=== PATIENT | male | born 1955 | race Caucasian/White ===

== ENCOUNTER 2017-09-09 11:18 | Observation (INO) | payer MEDICARE, OTHER ==
[2017-09-09] MEDS ORDERED: Sodium Chloride 0.9% 1,000 ML IV ONE (11:42)
[2017-09-09] MEDS ORDERED: Sodium Chloride 0.9% 10 ML Syringe FLUSH PRN ×2 (11:43→12:59)
[2017-09-09] MEDS ORDERED: cefTRIAXone 1,000 MG in Sodium Chloride 0.9% 50 ML IV ONE (12:32)
[2017-09-09] MEDS ORDERED: Acetaminophen 325 MG Tab PO STA (12:35)
--- NOTE | 2017-09-09 12:37 | EDM.PDOC ---
ED HPI GENERAL MEDICAL PROBLEM - General Chief Complaint: Fever Stated Complaint: COUGH,CHILLS Time Seen by Provider: 09/09/17 11:42 Source of Information: Reports: Patient, Family () History Limitations: Reports: No Limitations - History of Present Illness INITIAL COMMENTS - FREE TEXT/NARRATIVE: 61 y.o.w.m came to the ed with his SO due to Fever, prod cough and SOB. Pt has a h/o Alport syndrome, was on dialysis and has now a donor kidney implanted, taking insuppressible medications. 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 Pt had pneumonia in the past. Pt's called the [facility] advising the patient to be seen here in our ED. Pt took Tylenol at 4 am today. 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: Acetaminophen headache Pain Score (Numeric/FACES): 5 - Related Data Allergies Allergy/AdvReac Type Severity Reaction Status Date / Time amlodipine besylate Allergy Unknown Swelling Verified 09/09/17 14:07 [From Norvasc] minoxidil Allergy Unknown Swelling Verified 09/09/17 14:07 alcohol Allergy Rash Verified 09/09/17 14:07 clonidine Allergy Difficulty Verified 09/09/17 14:07 Breathing levofloxacin [From Levaquin] Allergy Cannot Verified 09/09/17 14:07 Remember Home Meds: Home Meds Acetaminophen [Tylenol Extra Strength] 1,000 mg PO Q4H PRN 08/02/13 [History] Mycophenolate Mofetil [Cellcept] 250 mg PO BIDMEALS 08/02/13 [History] Omeprazole 40 mg PO BEDTIME 08/02/13 [History] Tacrolimus [Prograf] 2 mg PO BID 08/02/13 [History] Acetaminophen/Diphenhydramine [Tylenol Pm Ex-Strength Caplet] 1 ea PO BEDTIME PRN 12/03/15 [History] Amoxicillin/Potassium Clav [Amox-Clav 500-125 mg Tablet] 1 ea PO ASDIRECTED PRN 12/03/15 [History] Fluorouracil [Efudex 5% Cream] 1 applic TOP BID 12/03/15 [History] predniSONE [Prednisone] 10 mg PO DAILY 12/03/15 [History] Carvedilol [Coreg] 12.5 mg PO BID 09/09/17 [History] Furosemide [Lasix] 40 mg PO DAILY PRN 09/09/17 [History] Magnesium Chloride [Slow-Mag] 71.5 mg PO BID 09/09/17 [History] Multivitamin with Minerals [Multiple Vitamin] 1 tab PO DAILY 09/09/17 [History] Phosphorus #1 [Phospha 250 Neutral Tablet] 250 mg PO DAILY 09/09/17 [History] Phosphorus #1 [Phospha 250 Neutral Tablet] 250 mg PO DAILY 09/09/17 [History] atorvaSTATin [Lipitor] 10 mg PO BEDTIME 09/09/17 [History] Past Medical History HEENT History: Reports: Hard of Hearing, Other (See Below) Other HEENT History: ACTINIC DERATOSIS, MALIGNANT NEOPLASM OF EYELID, INCLUDING CANTHUS Cardiovascular History: Reports: High Cholesterol, Hypertension Respiratory History: Reports: SOB Gastrointestinal History: Reports: Other (See Below) Other Gastrointestinal History: HYDROCELE Genitourinary History: Reports: Dialysis, Dialysis, Peritoneal, Prostate Disorder, Renal Disease Neurological History: Reports: None Psychiatric History: Reports: None Endocrine/Metabolic History: Reports: Hyperparathyroidism Other Endocrine/Metabolic History: PARATHYROIDECTOMY R/T 2NDARY FROM RENAL DISEASE Hematologic History: Reports: Anemia, Blood Transfusion(s) Other Hematologic History: ANEMIA R/T KIDNEY DISEASE Immunologic History: Reports: None Oncologic (Cancer) History: Reports: Prostate, Squamous Cell Carcinoma Dermatologic History: Reports: Other (See Below) Other Dermatologic History: NEOPLASMS OF SKIN - Infectious Disease History Infectious Disease History: Reports: Chicken Pox, Measles, Mumps, Rubella, Shingles - Past Surgical History HEENT Surgical History: Reports: Oral Surgery Cardiovascular Surgical History: Reports: Vascular Surgery Male Surgical History: Reports: Other (See Below) Other Male Surgeries/Procedures: kidney transplant x 3 Endocrine Surgical History: Reports: Parathyroidectomy Neurological Surgical History: Reports: None Musculoskeletal Surgical History: Reports: Hip Replacement, Other (See Below) Social & Family History - Family History Family Medical History: Noncontributory - Tobacco Use Smoking Status *Q: Never Smoker Used Tobacco, but Quit: Yes Second Hand Smoke Exposure: No - Caffeine Use Caffeine Use: Reports: Coffee - Alcohol Use Days Per Week of Alcohol Use: 0 - Recreational Drug Use Recreational Drug Use: No ED ROS GENERAL - Review of Systems Review Of Systems: See Below Constitutional: Reports: Weakness HEENT: Reports: No Symptoms Respiratory: Reports: Shortness of Breath, Wheezing, Cough, Sputum Cardiovascular: Reports: No Symptoms Endocrine: Reports: No Symptoms GI/Abdominal: Reports: No Symptoms : Reports: No Symptoms Musculoskeletal: Reports: No Symptoms Skin: Reports: No Symptoms Neurological: Reports: No Symptoms Psychiatric: Reports: No Symptoms Hematologic/Lymphatic: Reports: No Symptoms Immunologic: Reports: No Symptoms ED EXAM, SEPSIS - Physical Exam Exam: See Below Exam Limited By: No Limitations General Appearance: Alert, WD/WN, Moderate Distress Eye Exam: Bilateral Eye: Normal Inspection Ears: Normal External Exam Nose: Normal Inspection Throat/Mouth: Normal Inspection, Normal Lips, Normal Gums, No Airway Compromise Head: Atraumatic, Normocephalic Neck: Normal Inspection, Supple, Non-Tender, Full Range of Motion Respiratory/Chest: Respiratory Distress, Decreased Breath Sounds, Wheezing Cardiovascular: Normal Peripheral Pulses, Regular Rate, Rhythm, No Edema, No Gallop, No JVD, No Murmur, No Rub Peripheral Pulses: 1+: Brachial (R) GI/Abdominal Exam: Normal Bowel Sounds, Soft, Non-Tender, No Organomegaly, No Mass, Pelvis Stable (Male) Exam: No Hernia Rectal (Males) Exam: Deferred Back: Normal Inspection, Full Range of Motion Extremities: Normal Inspection, Normal Range of Motion, Non-Tender, No Pedal Edema, Normal Capillary Refill Neurological: Alert, Oriented, CN II-XII Intact, Normal Cognition, Normal Gait, Normal Reflexes, No Motor/Sensory Deficits Psychiatric: Normal Affect, Normal Mood Skin: Warm, Dry, Intact, Normal Color, No Rash Lymphatic: Bilateral: No Adenopathy Course - Vital Signs Text/Narrative:: 61 y.o.w.m came to the ed with his SO due to Fever, prod cough and SOB. Pt has a h/o Alport syndrome, was on dialysis and has now a donor kidney implanted, taking insuppressible medications. 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 Pt had pneumonia in the past. Pt's called the [facility] advising the patient to be seen here in our ED. Pt took Tylenol at 4 am today. BP 124/91 RR 18 Pulse ox 93% on RA Pulse 98 temp 36.8 on arrival PE: WNWD W M with Alports syndrome, S/P kidney trans plant presents with prod cough, F/C Labs: WBC 3.4 HGB 15.4 HCT 49.4 reminer of saeed CBC was nl INR 1.09 BUN 27 Cr. 1.7 GFR 41 CRP 2.4 Lactic acid 0.5 Imaging: Infiltrate RLL of lung Impression: Low WBC, Immunesuppressive, Squamous cell CA left eye lid, S/O Kidney transplant. Lung infiltrate. Tx: Tylenol, Rocephine, NS, Duoneb Reexam: Improved 1.01 pm Consultation: Dr. Galindo: Accepted the pt for admission Plan: Admit for ops in isolation Last Recorded V/S: Last Vital Signs Temp 36.7 C 09/09/17 20:00 Pulse 81 09/09/17 20:17 Resp 18 09/09/17 20:00 BP 126/88 09/09/17 20:17 Pulse Ox 96 09/09/17 20:00 - Orders/Labs/Meds Orders: Active Orders 24 hr Category Date Time Status CXR [Chest 2V] [CR] Stat Exams 09/09/17 11:40 Taken CULTURE BLOOD [BC] Urgent Lab 09/09/17 11:55 Received CULTURE BLOOD [BC] Urgent Lab 09/09/17 12:00 Received UA W/MICROSCOPIC [URIN] Stat Lab 09/09/17 12:39 Ordered Sodium Chloride 0.9% [Saline Flush] Med 09/09/17 11:43 Active 10 ml FLUSH ASDIRECTED PRN Blood Culture x2 Reflex Set [OM.PC] Urgent Oth 09/09/17 11:48 Ordered Saline Lock Insert [OM.PC] Routine Oth 09/09/17 11:43 Ordered Medication Orders Acetaminophen (Tylenol) 650 mg PO Q4H PRN PRN Reason: Pain (Mild 1-3)/fever Last Admin: 09/09/17 20:21 Dose: 650 mg Admin: 09/09/17 15:31 Dose: 650 mg Atorvastatin Calcium (Lipitor) 10 mg PO MoWeFr@2100 [facility] Carvedilol (Coreg) 15.625 mg PO BID [facility] Last Admin: 09/09/17 20:17 Dose: 15.625 mg Furosemide (Lasix) 40 mg PO DAILY PRN PRN Reason: Edema Sodium Chloride (Normal Saline) 1,000 mls @ 125 mls/hr IV ASDIRECTED [facility] Last Admin: 09/09/17 13:44 Dose: 125 mls/hr Azithromycin 500 mg/ Sodium (Chloride) 250 mls @ 250 mls/hr IV Q24H [facility] Last Admin: 09/09/17 15:16 Dose: 250 mls/hr Mycophenolate Mofetil (Cellcept) 250 mg PO BIDMEALS [facility] Last Admin: 09/09/17 19:42 Dose: 250 mg Magnesium Chloride [ Slow-Mag] 71.5 Mg Own Med 71.5 mg PO BID [facility] Last Admin: 09/09/17 20:17 Dose: 71.5 mg Multivitamin With Minerals [Multiple Vitamin] 1 TabOwn Med 1 tab PO DAILY [facility] Phospha 250 Neutral Tablet] 250 MgOwn Med 250 mg PO BID [facility] Last Admin: 09/09/17 20:17 Dose: 250 mg Pantoprazole Sodium (Protonix) 40 mg PO DAILY [facility] Prednisone (Prednisone) 10 mg PO DAILY [facility] Sodium Chloride (Saline Flush) 10 ml FLUSH ASDIRECTED PRN PRN Reason: Keep Vein Open Last Admin: 09/09/17 11:57 Dose: 10 ml Sodium Chloride (Saline Flush) 10 ml FLUSH ASDIRECTED PRN PRN Reason: Keep Vein Open Tacrolimus (Prograf) 2 mg PO BID [facility] Last Admin: 09/09/17 20:17 Dose: 2 mg Zolpidem Tartrate (Ambien) 5 mg PO BEDTIME PRN PRN Reason: Sleep Labs: Laboratory Tests 09/09/17 09/09/17 09/09/17 Range/Units 11:55 11:55 11:55 WBC 3.4 L (4.5-12.0) X10-3/uL RBC 5.62 (4.30-5.75) x10(6)uL Hgb 15.6 H D (11.5-15.5) g/dL Hct 49.8 D (30.0-51.3) % MCV 88.7 (80-96) fL MCH 27.8 (27.7-33.6) pg MCHC 31.4 L (32.2-35.4) g/dL RDW 17.1 H (11.5-15.5) % Plt Count 83 L (125-369) X10(3)uL MPV 8.8 (7.4-10.4) fL Neut % (Auto) 57.0 (46-82) % Lymph % (Auto) 31.4 (13-37) % Carter % (Auto) 9.7 (4-12) % Eos % (Auto) 1 (1.0-5.0) % Baso % (Auto) 1 (0-2) % Neut # (Auto) 2.0 (1.6-8.3) # Lymph # (Auto) 1.1 (0.6-5.0) # Carter # (Auto) 0.3 (0.0-1.3) # Eos # (Auto) 0.0 (0.0-0.8) # Baso # (Auto) 0.0 (0.0-0.2) # PT 11.0 (8.7-11.1) INR 1.09 (0.89-1.13) Sodium 136 (135-145) mmol/L Potassium 4.1 (3.5-5.3) mmol/L Chloride 101 (100-110) mmol/L Carbon Dioxide 26 (21-32) mmol/L BUN 21 H (7-18) mg/dL Creatinine 1.7 H (0.70-1.30) mg/dL Est Cr Clr Drug Dosing 55.92 mL/min Estimated GFR (MDRD) 41 L (>60) BUN/Creatinine Ratio 12.4 (9-20) Glucose 121 H (80-116) mg/dL Lactic Acid (0.4-2.2) mmol/L Calcium 8.9 (8.6-10.2) mg/dL C-Reactive Protein (0.5-0.9) mg/dL Urine Color (YELLOW) Urine Appearance (CLEAR) Urine pH (5.0-6.5) Ur Specific [place] (1.010-1.025) Urine Protein (NEGATIVE) mg/dL Urine Glucose (UA) (NEGATIVE) mg/dL Urine Ketones (NEGATIVE) mg/dL Urine Occult Blood (NEGATIVE) Urine Nitrite (NEGATIVE) Urine Bilirubin (NEGATIVE) Urine Urobilinogen (NEGATIVE) mg/dL Ur Leukocyte Esterase (NEGATIVE) Urine WBC (0) Ur Squamous Epith Cells (NS,R,O) Urine Bacteria (NS) 09/09/17 09/09/17 09/09/17 Range/Units 11:55 11:55 12:39 WBC (4.5-12.0) X10-3/uL RBC (4.30-5.75) x10(6)uL Hgb (11.5-15.5) g/dL Hct (30.0-51.3) % MCV (80-96) fL MCH (27.7-33.6) pg MCHC (32.2-35.4) g/dL RDW (11.5-15.5) % Plt Count (125-369) X10(3)uL MPV (7.4-10.4) fL Neut % (Auto) (46-82) % Lymph % (Auto) (13-37) % Carter % (Auto) (4-12) % Eos % (Auto) (1.0-5.0) % Baso % (Auto) (0-2) % Neut # (Auto) (1.6-8.3) # Lymph # (Auto) (0.6-5.0) # Carter # (Auto) (0.0-1.3) # Eos # (Auto) (0.0-0.8) # Baso # (Auto) (0.0-0.2) # PT (8.7-11.1) INR (0.89-1.13) Sodium (135-145) mmol/L Potassium (3.5-5.3) mmol/L Chloride (100-110) mmol/L Carbon Dioxide (21-32) mmol/L BUN (7-18) mg/dL Creatinine (0.70-1.30) mg/dL Est Cr Clr Drug Dosing mL/min Estimated GFR (MDRD) (>60) BUN/Creatinine Ratio (9-20) Glucose (80-116) mg/dL Lactic Acid 0.5 (0.4-2.2) mmol/L Calcium (8.6-10.2) mg/dL C-Reactive Protein 2.3 H (0.5-0.9) mg/dL Urine Color Yellow (YELLOW) Urine Appearance Clear (CLEAR) Urine pH 6.0 (5.0-6.5) Ur Specific [place] 1.010 (1.010-1.025) Urine Protein Negative (NEGATIVE) mg/dL Urine Glucose (UA) Normal (NEGATIVE) mg/dL Urine Ketones Negative (NEGATIVE) mg/dL Urine Occult Blood Negative (NEGATIVE) Urine Nitrite Negative (NEGATIVE) Urine Bilirubin Negative (NEGATIVE) Urine Urobilinogen Normal (NEGATIVE) mg/dL Ur Leukocyte Esterase Negative (NEGATIVE) Urine WBC 0-5 (0) Ur Squamous Epith Cells Occasional (NS,R,O) Urine Bacteria Few H (NS) Meds: Medications Generic Name Dose Route Start Last Admin Trade Name Freq PRN Reason Stop Dose Admin Acetaminophen 650 mg 09/09/17 13:55 09/09/17 20:21 Tylenol PO 650 mg Q4H PRN Administration Pain (Mild 1-3)/fever Atorvastatin Calcium 10 mg 09/10/17 21:00 Lipitor PO MoWeFr@2100 [facility] Carvedilol 15.625 mg 09/09/17 21:00 09/09/17 20:17 Coreg PO 15.625 mg BID RICKIE Administration Furosemide 40 mg 09/09/17 14:08 Lasix PO DAILY PRN Edema Sodium Chloride 1,000 mls @ 125 mls/hr 09/09/17 13:00 09/09/17 13:44 Normal Saline IV 125 mls/hr ASDIRECTED RICKIE Administration Azithromycin 500 mg/ Sodium 250 mls @ 250 mls/hr 09/09/17 14:30 09/09/17 15: 16 Chloride IV 250 mls/hr Q24H RICKIE Administration Mycophenolate Mofetil 250 mg 09/09/17 18:00 09/09/17 19:42 Cellcept PO 250 mg BIDMEALS RICKIE Administration Magnesium Chloride [ 71.5 mg 09/09/17 21:00 09/09/17 20:17 Slow-Mag] 71.5 Mg PO 71.5 mg Own Med BID RICKIE Administration Multivitamin With 1 tab 09/10/17 09:00 Minerals [Multiple PO Vitamin] 1 TabOwn DAILY RICKIE Med Phospha 250 Neutral 250 mg 09/09/17 21:00 09/09/17 20:17 Tablet] 250 MgOwn PO 250 mg Med BID RICKIE Administration Pantoprazole Sodium 40 mg 09/10/17 09:00 Protonix PO DAILY RICKIE Prednisone 10 mg 09/10/17 09:00 Prednisone PO DAILY [facility] Sodium Chloride 10 ml 09/09/17 11:43 09/09/17 11:57 Saline Flush FLUSH 10 ml ASDIRECTED PRN Administration Keep Vein Open Sodium Chloride 10 ml 09/09/17 12:59 Saline Flush FLUSH ASDIRECTED PRN Keep Vein Open Tacrolimus 2 mg 09/09/17 21:00 09/09/17 20:17 Prograf PO 2 mg BID RICKIE Administration Zolpidem Tartrate 5 mg 09/09/17 13:55 Ambien PO BEDTIME PRN Sleep Discontinued Medications Generic Name Dose Route Start Last Admin Trade Name Freq PRN Reason Stop Dose Admin Acetaminophen 650 mg 09/09/17 12:35 09/09/17 12:48 Tylenol PO 09/09/17 12:36 650 mg NOW STA Administration Atorvastatin Calcium 10 mg 09/09/17 21:00 Lipitor PO BEDTIME RICKIE Carvedilol 12.5 mg 09/09/17 21:00 Coreg PO BID [facility] Ceftriaxone Sodium Confirm 09/09/17 12:42 09/09/17 12:48 Rocephin Administered 09/09/17 12:43 Not Given Dose 1,000 mg .ROUTE .STK-MED ONE Ceftriaxone Sodium Confirm 09/09/17 12:44 09/09/17 12:48 Rocephin Administered 09/09/17 12:45 Not Given Dose 1,000 mg .ROUTE .STK-MED ONE Heparin Sodium (Porcine) Confirm 09/09/17 12:46 09/09/17 12:53 Heparin Sodium Administered 09/09/17 12:47 Not Given Dose 5,000 units .ROUTE .STK-MED ONE Sodium Chloride 1,000 mls @ 999 mls/hr 09/09/17 11:42 09/09/17 11:57 Normal Saline IV 09/09/17 12:42 999 mls/hr .BOLUS ONE Administration Ceftriaxone Sodium 1,000 mg/ 50 mls @ 100 mls/hr 09/09/17 12:32 09/09/17 12: 49 Sodium Chloride IV 09/09/17 13:01 100 mls/hr ONETIME ONE Administration Non-Formulary Medication 1 applic 09/09/17 21:00 Fluorouracil [Efudex 5% Cream] TOP BID [facility] Non-Formulary Medication 250 mg 09/10/17 09:00 Phosphorus #1 [Phospha 250 Neutral Tablet] PO DAILY [facility] Non-Formulary Medication 250 mg 09/10/17 09:00 Phosphorus #1 [Phospha 250 Neutral Tablet] PO DAILY [facility] Prednisone 5 mg 09/10/17 09:00 Prednisone PO DAILY [facility] Departure - Departure Time of Disposition: 13:20 Disposition: Refer to Observation Condition: Fair Clinical Impression: Pneumonia Qualifiers: Laterality: right Lung location: lower lobe of lung - Discharge Information - My Orders Last 24 Hours: My Active Orders 09/09/17 11:40 CXR [Chest 2V] [CR] Stat 09/09/17 11:43 Sodium Chloride 0.9% [Saline Flush] 10 ml FLUSH ASDIRECTED PRN Saline Lock Insert [OM.PC] Routine 09/09/17 11:48 Blood Culture x2 Reflex Set [OM.PC] Urgent 09/09/17 11:55 CULTURE BLOOD [BC] Urgent 09/09/17 12:00 CULTURE BLOOD [BC] Urgent 09/09/17 12:39 UA W/MICROSCOPIC [URIN] Stat - Assessment/Plan Last 24 Hours: My Active Orders 09/09/17 11:40 CXR [Chest 2V] [CR] Stat 09/09/17 11:43 Sodium Chloride 0.9% [Saline Flush] 10 ml FLUSH ASDIRECTED PRN Saline Lock Insert [OM.PC] Routine 09/09/17 11:48 Blood Culture x2 Reflex Set [OM.PC] Urgent 09/09/17 11:55 CULTURE BLOOD [BC] Urgent 09/09/17 12:00 CULTURE BLOOD [BC] Urgent 09/09/17 12:39 UA W/MICROSCOPIC [URIN] Stat
[2017-09-09] MEDS ORDERED: cefTRIAXone 1,000 MG VIAL ONE (12:42)
[2017-09-09] MEDS ORDERED: cefTRIAXone 500 MG Vial ONE (12:44)
[2017-09-09] MEDS ORDERED: Heparin Sodium 5,000 Units/ML Vial ONE (12:46)
[2017-09-09] MEDS: Sodium Chloride 0.9% 1,000 ML IV SCH (13:44)
[2017-09-09] MEDS ORDERED: Zolpidem 5 MG Tab PO PRN (13:55)
--- NOTE | 2017-09-09 14:15 | PCM.HP ---
H&P History of Present Illness - General Date of Service: 09/09/17 Admit Problem/Dx: Admission Diagnosis/Problem Admission Diagnosis/Problem Pneumonia - History of Present Illness Initial Comments - Free Text/Narative: Patient 61-year-old gentleman presenting to the ER with acute febrile illness in the setting of immunocompromise due to iatrogenic suppression after renal transplant. States last 2 days he has been feeling more congested with a slight cough along with poor appetite. No real increase shortness of breath however increased fatigability with activity. Was not having any chest pain or pressure no palpitations no neck pain jaw pain extremity numbness or tingling jaundice change in bowel or bladder habits. He did notice urine output has been less but he's also been drinking and eating less as well too. We'll contact he is aware of. No recent change in medication and no real [id number] medications that he is tried. He has had intermittent sweats and chills. He is up-to-date on his immunizations. headache Pain Score (Numeric/FACES): 5 - Related Data Allergies/Adverse Reactions: Allergies Allergy/AdvReac Type Severity Reaction Status Date / Time amlodipine besylate Allergy Unknown Swelling Verified 09/09/17 14:07 [From Norvasc] minoxidil Allergy Unknown Swelling Verified 09/09/17 14:07 alcohol Allergy Rash Verified 09/09/17 14:07 clonidine Allergy Difficulty Verified 09/09/17 14:07 Breathing levofloxacin [From Levaquin] Allergy Cannot Verified 09/09/17 14:07 Remember Home Medications: Home Meds Acetaminophen [Tylenol Extra Strength] 1,000 mg PO Q4H PRN 08/02/13 [History] Acetaminophen/Diphenhydramine [Tylenol Pm Ex-Strength Caplet] 1 ea PO BEDTIME PRN 12/03/15 [History] Amoxicillin/Potassium Clav [Amox-Clav 500-125 mg Tablet] 1 ea PO ASDIRECTED PRN 12/03/15 [History] Fluorouracil [Efudex 5% Cream] 1 applic TOP BID 12/03/15 [History] Multivitamin with Minerals [Multiple Vitamin] 1 tab PO DAILY 09/09/17 [History] Furosemide [Lasix] 40 mg PO Q2D 09/10/17 [History] Amoxicillin/Potassium Clav [Augmentin 500-125 Tablet] 1 each PO Q8H 5 Days #15 tablet 09/11/17 [Rx] Azithromycin [Zithromax] 250 mg PO DAILY #4 tab 09/11/17 [Rx] Carvedilol [Coreg] 3.125 mg PO 0800,1944 tablet 09/11/17 [Rx] Carvedilol [Coreg] 12.5 mg PO 0800,1944 tablet 09/11/17 [Rx] Fluticasone Propionate [Flonase] 1 spr NASBOTH BID 5 Days #1 bottle 09/11/17 [Rx ] Furosemide [Lasix] 40 mg PO Q2D #60 tablet 09/11/17 [Rx] Magnesium Chloride [Slow-Mag] 71.5 mg PO 0800,194409/11/17 [Rx] Mycophenolate Mofetil [Cellcept] 250 mg PO 0800,1944 cap 09/11/17 [Rx] Pantoprazole Sodium 40 mg PO 1744 #60 tablet. 09/11/17 [Rx] Pantoprazole [ProTONIX] 40 mg PO 1944 #60 tab.cr 09/11/17 [Rx] Phosphorus #1 [Phospha 250 Neutral Tablet] 250 mg PO 0800,194409/11/17 [Rx] Tacrolimus [Prograf] 2 mg PO 0800,1944 cap 09/11/17 [Rx] atorvaSTATin [Lipitor] 10 mg PO MoWeFr@2100 #60 tablet 09/11/17 [Rx] predniSONE 10 mg PO DAILY tablet 09/11/17 [Rx] Past Medical History HEENT History: Reports: Impaired Vision (bILATERAL HEARTNG DEVICES WORN), Other (See Below) Other HEENT History: ACTINIC DERMATOSIS, MALIGNANT NEOPLASM OF EYELID, INCLUDING CANTHUS Cardiovascular History: Reports: Cardiomyopathy, Heart Failure, Hypertension, Other (See Below) (RIGHT). Denies: Afib, Aneurysm, Angina, Arrhythmia, Bacterial Endocarditis, Blood Clots/VTE/DVT, Heart Murmur, Heart Valve Replacement, ME, Pacemaker, PVD, Stents Other Cardiovascular History: RUE AV FISTUAL ALONG THE FOREARM, HEALTHY AND FUNCTIONAL. HX OF DIALYSIS 2 YEARS PRIOR TO TRANSPLANTS. Respiratory History: Reports: Interstitial Lung Disease, Pulmonary Fibrosis, SOB Gastrointestinal History: Reports: GERD, Other (See Below) Other Gastrointestinal History: HYDROCELE Genitourinary History: Reports: Dialysis, Dialysis, Peritoneal, Prostate Disorder, Renal Disease, Other (See Below) Other Genitourinary History: home hemodialysis Neurological History: Reports: None Psychiatric History: Reports: None Endocrine/Metabolic History: Reports: Hyperparathyroidism Other Endocrine/Metabolic History: PARATHYROIDECTOMY R/T 2NDARY FROM RENAL DISEASE Hematologic History: Reports: Anemia, Blood Transfusion(s) Other Hematologic History: ANEMIA R/T KIDNEY DISEASE Immunologic History: Reports: None, Immunosuppression, 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 ROSACIA, SEBACCIOUS CYSTS INTERMETTENTLY TO THE BACK. - Infectious Disease History Infectious Disease History: Reports: Chicken Pox, Measles, Mumps, Rubella, Shingles - Past Surgical History HEENT Surgical History: Reports: Oral Surgery Other HEENT Surgeries/Procedures: PARATHYROIDECTOMY Cardiovascular Surgical History: Reports: Vascular Surgery (RIGHT UE FISTULA FOR DIALYSIS IF NEEDED.) Respiratory Surgical History: Reports: None GI Surgical History: Reports: Colonoscopy Male Surgical History: Reports: Prostate Biopsy, Prostatectomy, Vasectomy, Other (See Below) (RIGHT KIDNEY REPLACE X 3) Endocrine Surgical History: Reports: Parathyroidectomy Neurological Surgical History: Reports: None Musculoskeletal Surgical History: Reports: Hip Replacement, Other (See Below) - Past Imaging History Past Imaging History: Reports: Angiography, Cardiac Echo, EEG, MRI, Venous Doppler, Xray Social & Family History - Family History Family Medical History: Noncontributory - Tobacco Use Smoking Status *Q: Never Smoker Used Tobacco, but Quit: Yes Second Hand Smoke Exposure: No - Caffeine Use Caffeine Use: Reports: Coffee Other Caffeine Use: 1-2 cups per day - Alcohol Use Days Per Week of Alcohol Use: 0 - Recreational Drug Use Recreational Drug Use: No - Living Situation & Occupation Living situation: Reports: , with Spouse 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 Exam - Exam Exam: See Below - Vital Signs Vital Signs: Vital Signs - 24 hr 09/09/17 09/09/17 09/09/17 11:42 13:46 16:00 Temperature [ 98.3 F 97.9 F Oral] Temperature [ 102.7 F H Tympanic] Pulse, 80 86 Peripheral [ Left Pulse Oximetry] Pulse, 93 Peripheral [ Right Pulse Oximetry] Respiratory 20 18 18 Rate Blood Pressure 134/78 124/79 122/84 [Left Upper Arm ] O2 Sat by Pulse 94 L 93 L 94 L Oximetry Weight: 108.012 kg - Exam Quality Assessment: DVT Prophylaxis General: Alert, Oriented, Cooperative. No: Mild Distress HEENT: Conjunctiva Clear, EOMI, Nares Patent, Posterior Pharynx Clear, Pupils Equal, Other (DRY MMM. NO WARMTH OR TENDERNESS TO THE FRONTAL, MAXILLARY SINUSES. NO MASTOID, TRIGUS, OR SCALP TENDERNESS/LESIONS. ) Neck: Supple, Trachea Midline, +2 Carotid Pulse wo Bruit, Full Range of Motion. No: Lymphadenopathy, Carotid Bruit, JVD, Thyromegaly Lungs: Decreased Breath Sounds, Rales (COURSE INSPIRATORY RALESL NOTED AT THE ANTERIOR CHEST ALONG THE RIGHT MID/LOWER LOBE. NO RETRACTION OR INCREASE WORK OF BREATHING. NO SPLINTING. NO TENDERNESS TO PALPATION. ) Cardiovascular: Regular Rate, Regular Rhythm, Normal S1, Normal S2 GI/Abdominal Exam: Normal Bowel Sounds, Soft, Non-Tender. No: Guarding, Rigid (Male) Exam: Deferred Rectal (Males) Exam: Deferred Back Exam: Normal Inspection. No: CVA Tenderness (R), CVA Tenderness (L), Paraspinal Tenderness, Vertebral Tenderness Extremities: Normal Range of Motion, Non-Tender, No Pedal Edema, Normal Capillary Refill, Increased Warmth. No: Joint Swelling, Leg Pain Skin: Warm, Dry, Intact, Other (0.25 CM ERYTHEMETUS NODULE TO THE LOW CENTRAL BACK THAT IS IRRITATING. HAS BEEN THERE A WHILE, BUT ITCHES AT TIMES. NO INDURATION, OOZING OR FLUCTUANCE. ESCHAR OVER APEX. SURRROUND TISSUE HEALTH. ) Neurological: Cranial Nerves Intact, Strength Equal Bilateral, Normal Speech Neuro Extensive - Mental Status: Alert, Oriented x3, Normal Mood/Affect, Normal Cognition, Memory Intact - Patient Data Lab Results Last 24 hrs: Laboratory Results - last 24 hr 09/09/17 09/09/17 09/09/17 Range/Units 11:55 11:55 11:55 WBC 3.4 L (4.5-12.0) X10-3/uL RBC 5.62 (4.30-5.75) x10(6)uL Hgb 15.6 H D (11.5-15.5) g/dL Hct 49.8 D (30.0-51.3) % MCV 88.7 (80-96) fL MCH 27.8 (27.7-33.6) pg MCHC 31.4 L (32.2-35.4) g/dL RDW 17.1 H (11.5-15.5) % Plt Count 83 L (125-369) X10(3)uL MPV 8.8 (7.4-10.4) fL Neut % (Auto) 57.0 (46-82) % Lymph % (Auto) 31.4 (13-37) % Kerr % (Auto) 9.7 (4-12) % Eos % (Auto) 1 (1.0-5.0) % Baso % (Auto) 1 (0-2) % Neut # (Auto) 2.0 (1.6-8.3) # Lymph # (Auto) 1.1 (0.6-5.0) # Kerr # (Auto) 0.3 (0.0-1.3) # Eos # (Auto) 0.0 (0.0-0.8) # Baso # (Auto) 0.0 (0.0-0.2) # PT 11.0 (8.7-11.1) INR 1.09 (0.89-1.13) Sodium 136 (135-145) mmol/L Potassium 4.1 (3.5-5.3) mmol/L Chloride 101 (100-110) mmol/L Carbon Dioxide 26 (21-32) mmol/L BUN 21 H (7-18) mg/dL Creatinine 1.7 H (0.70-1.30) mg/dL Est Cr Clr Drug Dosing 55.92 mL/min Estimated GFR (MDRD) 41 L (>60) BUN/Creatinine Ratio 12.4 (9-20) Glucose 121 H (80-116) mg/dL Lactic Acid (0.4-2.2) mmol/L Calcium 8.9 (8.6-10.2) mg/dL Urine Color (YELLOW) Urine Appearance (CLEAR) Urine pH (5.0-6.5) Ur Specific [place] (1.010-1.025) Urine Protein (NEGATIVE) mg/dL Urine Glucose (UA) (NEGATIVE) mg/dL Urine Ketones (NEGATIVE) mg/dL Urine Occult Blood (NEGATIVE) Urine Nitrite (NEGATIVE) Urine Bilirubin (NEGATIVE) Urine Urobilinogen (NEGATIVE) mg/dL Ur Leukocyte Esterase (NEGATIVE) Urine WBC (0) Ur Squamous Epith Cells (NS,R,O) Urine Bacteria (NS) 09/09/17 09/09/17 Range/Units 11:55 12:39 WBC (4.5-12.0) X10-3/uL RBC (4.30-5.75) x10(6)uL Hgb (11.5-15.5) g/dL Hct (30.0-51.3) % MCV (80-96) fL MCH (27.7-33.6) pg MCHC (32.2-35.4) g/dL RDW (11.5-15.5) % Plt Count (125-369) X10(3)uL MPV (7.4-10.4) fL Neut % (Auto) (46-82) % Lymph % (Auto) (13-37) % Kerr % (Auto) (4-12) % Eos % (Auto) (1.0-5.0) % Baso % (Auto) (0-2) % Neut # (Auto) (1.6-8.3) # Lymph # (Auto) (0.6-5.0) # Kerr # (Auto) (0.0-1.3) # Eos # (Auto) (0.0-0.8) # Baso # (Auto) (0.0-0.2) # PT (8.7-11.1) INR (0.89-1.13) Sodium (135-145) mmol/L Potassium (3.5-5.3) mmol/L Chloride (100-110) mmol/L Carbon Dioxide (21-32) mmol/L BUN (7-18) mg/dL Creatinine (0.70-1.30) mg/dL Est Cr Clr Drug Dosing mL/min Estimated GFR (MDRD) (>60) BUN/Creatinine Ratio (9-20) Glucose (80-116) mg/dL Lactic Acid 0.5 (0.4-2.2) mmol/L Calcium (8.6-10.2) mg/dL Urine Color Yellow (YELLOW) Urine Appearance Clear (CLEAR) Urine pH 6.0 (5.0-6.5) Ur Specific [place] 1.010 (1.010-1.025) Urine Protein Negative (NEGATIVE) mg/dL Urine Glucose (UA) Normal (NEGATIVE) mg/dL Urine Ketones Negative (NEGATIVE) mg/dL Urine Occult Blood Negative (NEGATIVE) Urine Nitrite Negative (NEGATIVE) Urine Bilirubin Negative (NEGATIVE) Urine Urobilinogen Normal (NEGATIVE) mg/dL Ur Leukocyte Esterase Negative (NEGATIVE) Urine WBC 0-5 (0) Ur Squamous Epith Cells Occasional (NS,R,O) Urine Bacteria Few H (NS) Result Diagrams: 09/11/17 08:05 09/11/17 08:05 - Problem List (1) CAP (community acquired pneumonia) SNOMED Code(s): 887599437 ICD Code: J18.9 - PNEUMONIA, UNSPECIFIED ORGANISM Status: Acute Qualifiers: Laterality: right Lung location: lower lobe of lung Qualified Code(s): J18.1 - Lobar pneumonia, unspecified organism (2) Febrile respiratory illness SNOMED Code(s): 32189530 ICD Code: J98.9 - RESPIRATORY DISORDER, UNSPECIFIED; R50.9 - FEVER, UNSPECIFIED Status: Acute (3) Secondary immune deficiency disorder SNOMED Code(s): 80876387 ICD Code: D89.89 - OTH DISRD INVOLVING THE IMMUNE MECHANISM, NEC Status: Chronic (4) Drug-induced immune thrombocytopenia SNOMED Code(s): 74740734 ICD Code: D69.59 - OTHER SECONDARY THROMBOCYTOPENIA; T50.905A - ADVERSE EFFECT OF UNSP DRUG/MEDS/BIOL SUBST, INIT Status: Chronic (5) Renal impairment SNOMED Code(s): 664364903 ICD Code: N28.9 - DISORDER OF KIDNEY AND URETER, UNSPECIFIED Status: Chronic (6) Renovascular hypertension SNOMED Code(s): 590099130 ICD Code: I15.0 - RENOVASCULAR HYPERTENSION Status: Chronic Priority: High (7) Transplant of kidney SNOMED Code(s): 747995336 ICD Code: Z94.0 - KIDNEY TRANSPLANT STATUS Status: Chronic Problem Details: Continue transplant antirejection meds. (8) Cardiomyopathy SNOMED Code(s): 42167685 ICD Code: I42.9 - CARDIOMYOPATHY, UNSPECIFIED Status: Acute Priority: High Problem List Initiated/Reviewed/Updated: Yes Orders Last 24hrs: Active Orders 24 hr Category Date Time Status Patient Status [ADT] Routine ADT 09/09/17 12:59 Active Ambulate [RC] PER UNIT ROUTINE Care 09/09/17 14:00 Ordered Height and Weight [RC] DAILY Care 09/09/17 13:55 Ordered Intake and Output [RC] Q4H Care 09/09/17 13:58 Ordered May Shower [RC] ASDIRECTED Care 09/09/17 13:55 Ordered Notify Provider Vital Signs [RC] ASDIRECTED Care 09/09/17 13:59 Ordered Oxygen Therapy [RC] PRN Care 09/09/17 12:59 Active RT Incentive Spirometry [RC] Q4HWA Care 09/09/17 13:55 Ordered Up With Assistance [RC] ASDIRECTED Care 09/09/17 12:59 Active VTE/DVT Education [RC] Per Unit Routine Care 09/09/17 12:59 Active Vital Signs [RC] Q4H Care 09/09/17 12:59 Active Regular Diet [DIET] Diet 09/09/17 Breakfast Ordered CXR [Chest 2V] [CR] Stat Exams 09/09/17 11:40 Taken BASIC METABOLIC PANEL,BMP [CHEM] AM Lab 09/10/17 05:11 Ordered CBC WITH AUTO DIFF [HEME] AM Lab 09/10/17 05:11 Ordered CRP [C-REACTIVE PROTEIN] [CHEM] Routine Lab 09/09/17 13:50 Ordered CULTURE BLOOD [BC] Urgent Lab 09/09/17 11:55 Received CULTURE BLOOD [BC] Urgent Lab 09/09/17 12:00 Received CULTURE SPUTUM + SMEAR [RM] Routine Lab 09/09/17 13:55 Ordered MAGNESIUM [CHEM] AM Lab 09/10/17 05:11 Ordered PHOSPHORUS [CHEM] AM Lab 09/10/17 05:11 Ordered UA W/MICROSCOPIC [URIN] Stat Lab 09/09/17 12:39 Ordered Acetaminophen [Tylenol] Med 09/09/17 13:55 Ordered 650 mg PO Q4H PRN Azithromycin [Zithromax] 500 mg Med 09/09/17 14:15 Ordered Sodium Chloride 0.9% [Normal Saline] 250 ml IV Q24H Carvedilol [Coreg] Med 09/09/17 21:00 Ordered 12.5 mg PO BID Fluorouracil [Efudex 5% Cream] Med 09/09/17 21:00 Ordered 1 applic TOP BID Furosemide [Lasix] Med 09/09/17 14:08 Ordered 40 mg PO DAILY PRN Magnesium Chloride [Slow-Mag] Med 09/09/17 21:00 Ordered 71.5 mg PO BID Multivitamin with Minerals [Multiple Vitamin] Med 09/10/17 09:00 Ordered 1 tab PO DAILY Mycophenolate Mofetil [Cellcept] Med 09/09/17 18:00 Ordered 250 mg PO BIDMEALS Pantoprazole [ProTONIX] Med 09/10/17 09:00 Ordered 40 mg PO DAILY Phosphorus #1 [Phospha 250 Neutral Tablet] Med 09/10/17 09:00 Ordered 250 mg PO DAILY Sodium Chloride 0.9% [Normal Saline] 1,000 ml Med 09/09/17 13:00 Active IV ASDIRECTED Sodium Chloride 0.9% [Saline Flush] Med 09/09/17 11:43 Active 10 ml FLUSH ASDIRECTED PRN Sodium Chloride 0.9% [Saline Flush] Med 09/09/17 12:59 Active 10 ml FLUSH ASDIRECTED PRN Tacrolimus [Prograf] Med 09/09/17 21:00 Ordered 2 mg PO BID Zolpidem [Ambien] Med 09/09/17 13:55 Ordered 5 mg PO BEDTIME PRN atorvaSTATin [Lipitor] Med 09/09/17 21:00 Ordered 10 mg PO BEDTIME predniSONE Med 09/10/17 09:00 Ordered 5 mg PO DAILY Blood Culture x2 Reflex Set [OM.PC] Urgent Oth 09/09/17 11:48 Ordered Blood Culture x2 Reflex Set [OM.PC] Urgent Oth 09/09/17 13:58 Ordered Blood Culture x2 Reflex Set [OM.PC] Urgent Oth 09/09/17 14:07 Ordered Peripheral IV Insertion Adult [OM.PC] Routine Oth 09/09/17 12:59 Ordered Saline Lock Insert [OM.PC] Routine Oth 09/09/17 11:43 Ordered Resuscitation Status Routine Resus Stat 09/09/17 12:59 Ordered Medication Orders Atorvastatin Calcium (Lipitor) 10 mg PO BEDTIME RICKIE Carvedilol (Coreg) 12.5 mg PO BID RICKIE Sodium Chloride (Normal Saline) 1,000 mls @ 125 mls/hr IV ASDIRECTED RICKIE Last Admin: 09/09/17 13:44 Dose: 125 mls/hr Mycophenolate Mofetil (Cellcept) 250 mg PO BIDMEALS RICKIE Non-Formulary Medication (Fluorouracil [Efudex 5% Cream]) 1 applic TOP BID [facility] Non-Formulary Medication (Magnesium Chloride [Slow-Mag]) 71.5 mg PO BID RICKIE Non-Formulary Medication (Multivitamin With Minerals [Multiple Vitamin]) 1 tab PO DAILY [facility] Non-Formulary Medication (Phosphorus #1 [Phospha 250 Neutral Tablet]) 250 mg PO DAILY RICKIE Pantoprazole Sodium (Protonix) 40 mg PO DAILY [facility] Prednisone (Prednisone) 5 mg PO DAILY [facility] Sodium Chloride (Saline Flush) 10 ml FLUSH ASDIRECTED PRN PRN Reason: Keep Vein Open Last Admin: 09/09/17 11:57 Dose: 10 ml Sodium Chloride (Saline Flush) 10 ml FLUSH ASDIRECTED PRN PRN Reason: Keep Vein Open Tacrolimus (Prograf) 2 mg PO BID [facility] Assessment/Plan Comment:: We'll admit for observation. He did get a dose Rocephin in the ER and i will add azithromycin. We'll hydrate him and monitor renal function. Chest x-ray consistent with lower lobe pneumonia. Certainly at risk for complications. Home medications be continued. All questions answered and they're comfortable with the above plan of care.
[2017-09-09] MEDS: Azithromycin 500 MG in Sodium Chloride 0.9% 250 ML IV SCH (15:16)
[2017-09-09] MEDS: Acetaminophen 325 MG Tab PO PRN ×2 (15:31→20:21)
[2017-09-09] MEDS: MYCOPHENOLATE MOFETIL 250 MG PO SCH (19:42)
[2017-09-09] MEDS: PHOSPHA PO SCH (20:17)
[2017-09-09] MEDS: MAGNESIUM CHLORIDE 71.5 MG PO SCH (20:17)
[2017-09-09] MEDS: TACROLIMUS 1 MG PO SCH (20:17)
[2017-09-09] MEDS: [UNRECOGNIZED DRUG - OTHER] PO SCH (20:17)
[2017-09-09] MEDS: Carvedilol 12.5 MG Tab**OWN MED PO SCH (20:17)
[2017-09-09] MEDS ORDERED: atorvaSTATin 10 MG Tab**OWN MED PO SCH (21:00)
[2017-09-09] MEDS ORDERED: Carvedilol 12.5 MG Tab**OWN MED PO SCH (21:00)
[2017-09-09] MEDS ORDERED: FLUOROURACIL TOP SCH (21:00)
[2017-09-10] MEDS: Sodium Chloride 0.9% 1,000 ML IV SCH ×3 (00:07→20:37)
[2017-09-10] MEDS ORDERED: FUROSEMIDE 40 MG PO SCH (08:00)
[2017-09-10] MEDS: Carvedilol 12.5 MG Tab**OWN MED PO SCH ×2 (08:07→20:18)
[2017-09-10] MEDS: MYCOPHENOLATE MOFETIL 250 MG PO SCH ×2 (08:07→20:20)
[2017-09-10] MEDS: MAGNESIUM CHLORIDE 71.5 MG PO SCH ×2 (08:08→20:18)
[2017-09-10] MEDS: PREDNISONE 5 MG PO SCH (08:08)
[2017-09-10] MEDS: TACROLIMUS 1 MG PO SCH ×2 (08:08→20:20)
[2017-09-10] MEDS: PHOSPHA PO SCH ×2 (08:08→20:19)
[2017-09-10] MEDS: MULTIVITAMIN WITH MINERALS PO SCH (08:08)
[2017-09-10] MEDS: [UNRECOGNIZED DRUG - OTHER] PO SCH ×2 (08:08→20:19)
[2017-09-10] MEDS ORDERED: CARVEDILOL 3.125 MG PO SCH (09:00)
[2017-09-10] MEDS ORDERED: Pantoprazole 40 MG Tab.CR**OWN MED PO SCH ×2 (09:00→19:45)
[2017-09-10] MEDS ORDERED: PHOSPHORUS 250 MG PO SCH ×2 (09:00)
[2017-09-10] MEDS ORDERED: Carvedilol 12.5 MG Tab**OWN MED PO SCH (09:00)
[2017-09-10] MEDS ORDERED: predniSONE 5 MG Tab PO SCH (09:00)
[2017-09-10] MEDS: Fluticasone Propionate Nasal Spray 16 GM Bottle NASBOTH SCH ×2 (09:15→21:02)
--- NOTE | 2017-09-10 12:32 | CR ---
INDICATION: Trauma. RIGHT FOREARM: Frontal and lateral views of the right forearm revealed no evidence of a fracture, dislocation, or other significant bone or joint abnormality. LILIANED
[2017-09-10] MEDS: Azithromycin 500 MG in Sodium Chloride 0.9% 250 ML IV SCH (14:28)
[2017-09-10] MEDS: CARVEDILOL 3.125 MG PO SCH (20:17)
[2017-09-10] MEDS ORDERED: atorvaSTATin 10 MG Tab**OWN MED PO SCH (21:00)
[2017-09-11] MEDS: Sodium Chloride 0.9% 1,000 ML IV SCH (04:49)
[2017-09-11] MEDS: MYCOPHENOLATE MOFETIL 250 MG PO SCH (08:28)
[2017-09-11] MEDS: Carvedilol 12.5 MG Tab**OWN MED PO SCH (08:28)
[2017-09-11] MEDS: CARVEDILOL 3.125 MG PO SCH (08:29)
[2017-09-11] MEDS: MAGNESIUM CHLORIDE 71.5 MG PO SCH (08:29)
[2017-09-11] MEDS: Fluticasone Propionate Nasal Spray 16 GM Bottle NASBOTH SCH (08:30)
[2017-09-11] MEDS: TACROLIMUS 1 MG PO SCH (08:30)
[2017-09-11] MEDS: [UNRECOGNIZED DRUG - OTHER] PO SCH (08:30)
[2017-09-11] MEDS: PHOSPHA PO SCH (08:30)
[2017-09-11] MEDS: PREDNISONE 5 MG PO SCH (08:31)
[2017-09-11] MEDS: MULTIVITAMIN WITH MINERALS PO SCH (08:31)
--- NOTE | 2017-09-11 09:32 | PCM.DCSUM1 ---
Discharge Summary - Hospital Course Brief History: Presented for acute febrile illness secondary to lower lobe pneumonia. Immunocompromise state. Also showing mild to moderate dehydration. - Discharge Data Discharge Date: 09/11/17 Discharge Disposition: Home, Self-Care 01 Condition: Good - Discharge Diagnosis/Problem(s) (1) CAP (community acquired pneumonia) SNOMED Code(s): 514580547 ICD Code: J18.9 - PNEUMONIA, UNSPECIFIED ORGANISM Status: Acute Qualifiers: Laterality: right Lung location: lower lobe of lung Qualified Code(s): J18.1 - Lobar pneumonia, unspecified organism (2) Febrile respiratory illness SNOMED Code(s): 56283291 ICD Code: J98.9 - RESPIRATORY DISORDER, UNSPECIFIED; R50.9 - FEVER, UNSPECIFIED Status: Acute (3) Secondary immune deficiency disorder SNOMED Code(s): 34730939 ICD Code: D89.89 - OTH DISRD INVOLVING THE IMMUNE MECHANISM, NEC Status: Chronic (4) Drug-induced immune thrombocytopenia SNOMED Code(s): 63576914 ICD Code: D69.59 - OTHER SECONDARY THROMBOCYTOPENIA; T50.905A - ADVERSE EFFECT OF UNSP DRUG/MEDS/BIOL SUBST, INIT Status: Chronic (5) Renal impairment SNOMED Code(s): 193454174 ICD Code: N28.9 - DISORDER OF KIDNEY AND URETER, UNSPECIFIED Status: Chronic (6) Renovascular hypertension SNOMED Code(s): 224515980 ICD Code: I15.0 - RENOVASCULAR HYPERTENSION Status: Chronic Priority: High (7) Transplant of kidney SNOMED Code(s): 871237172 ICD Code: Z94.0 - KIDNEY TRANSPLANT STATUS Status: Chronic Problem Details: Continue transplant antirejection meds. (8) Cardiomyopathy SNOMED Code(s): 16881847 ICD Code: I42.9 - CARDIOMYOPATHY, UNSPECIFIED Status: Acute Priority: High - Patient Summary/Data Hospital Course: Admit to medical floor. Immunocompromise precautions adheared to. Hydrated with IV fluids. Encourage oral intake. Started on IV antibiotics and continued on home medications. Over the course of his stay his intake and appetite improved. Urine output improved. Debility and malaise resolved. Remained afebrile greater than 48 hours. Desire to be discharged. Sent home on oral antibiotics. Instructions on when to return if needed discussed. Asked to take it easy the next couple days. He will follow-up with his PCP as well as his [facility] team which is scheduled in the next 2 weeks. All questions answered and he is ready for discharge. - Patient Instructions Diet: Usual Diet as Tolerated Activity: Cough & Deep Breathe, Rest and Relax Today Driving: Do Not Drive Showering/Bathing: May Shower Notify Provider of: Fever, Nausea and/or Vomiting Other/Special Instructions: increased cough with sob or wheezing not improving. - Discharge Plan Prescriptions/Med Rec: Amoxicillin/Potassium Clav [Augmentin 500-125 Tablet] 1 each PO Q8H 5 Days #15 tablet atorvaSTATin [Lipitor] 10 mg PO MoWeFr@2100 #60 tablet Azithromycin [Zithromax] 250 mg PO DAILY #4 tab Fluticasone Propionate [Flonase] 1 spr NASBOTH BID 5 Days #1 bottle Furosemide [Lasix] 40 mg PO Q2D #60 tablet Pantoprazole [ProTONIX] 40 mg PO 1944 #60 tab.cr Pantoprazole Sodium 40 mg PO 1744 #60 tablet. Home Medications: Home Meds Acetaminophen [Tylenol Extra Strength] 1,000 mg PO Q4H PRN 08/02/13 [History] Acetaminophen/Diphenhydramine [Tylenol Pm Ex-Strength Caplet] 1 ea PO BEDTIME PRN 12/03/15 [History] Amoxicillin/Potassium Clav [Amox-Clav 500-125 mg Tablet] 1 ea PO ASDIRECTED PRN 12/03/15 [History] Fluorouracil [Efudex 5% Cream] 1 applic TOP BID 12/03/15 [History] Multivitamin with Minerals [Multiple Vitamin] 1 tab PO DAILY 09/09/17 [History] Furosemide [Lasix] 40 mg PO Q2D 09/10/17 [History] Amoxicillin/Potassium Clav [Augmentin 500-125 Tablet] 1 each PO Q8H 5 Days #15 tablet 09/11/17 [Rx] Azithromycin [Zithromax] 250 mg PO DAILY #4 tab 09/11/17 [Rx] Carvedilol [Coreg] 3.125 mg PO 0800,1945 tablet 09/11/17 [Rx] Carvedilol [Coreg] 12.5 mg PO 0800,1945 tablet 09/11/17 [Rx] Fluticasone Propionate [Flonase] 1 spr NASBOTH BID 5 Days #1 bottle 09/11/17 [Rx ] Furosemide [Lasix] 40 mg PO Q2D #60 tablet 09/11/17 [Rx] Magnesium Chloride [Slow-Mag] 71.5 mg PO 0800,194409/11/17 [Rx] Mycophenolate Mofetil [Cellcept] 250 mg PO 0800,1944 cap 09/11/17 [Rx] Pantoprazole Sodium 40 mg PO 1744 #60 tablet. 09/11/17 [Rx] Pantoprazole [ProTONIX] 40 mg PO 1944 #60 tab.cr 09/11/17 [Rx] Phosphorus #1 [Phospha 250 Neutral Tablet] 250 mg PO 0800,194409/11/17 [Rx] Tacrolimus [Prograf] 2 mg PO 0800,1944 cap 09/11/17 [Rx] atorvaSTATin [Lipitor] 10 mg PO MoWeFr@2100 #60 tablet 09/11/17 [Rx] predniSONE 10 mg PO DAILY tablet 09/11/17 [Rx] Patient Handouts: Venous Thromboembolism, Community-Acquired Pneumonia, Adult, [id number] Referrals: Humberto Barlow MD [Primary Care Provider] - - Discharge Summary/Plan Comment DC Time >30 min.: Yes Discharge Summary/Plan Comment: see hospital course - General Info Date of Service: 09/11/17 Subjective Update: Overall feeling much improved. Appetite back to normal. Has had a bowel movement. Good urine output. Tells his strength is back to normal. He's been up and walking in the halls. No dyspnea lightheadedness headache chest pain or pressure weakening of the legs back pain pelvic pain flank pain rash joint swelling or tenderness with activity. He wishes to be discharged home today. He has been tolerating oral medications. He lives at home with his here in town. - Review of Systems Systems Review Comment: See subjective - Patient Data Vitals - Most Recent: Last Vital Signs Temp 97.8 F 09/11/17 07:42 Pulse 63 09/11/17 08:29 Resp 16 09/11/17 07:42 BP 152/93 H 09/11/17 08:29 Pulse Ox 94 L 09/11/17 07:42 Weight - Most Recent: 108.097 kg I&O - Last 24 hours: Intake & Output 09/10/17 09/11/17 22:59 06:59 Intake Total 1450 1040 Output Total 1850 400 Balance -400 640 Lab Results - Last 24 hrs: Laboratory Tests 09/09/17 09/09/17 09/09/17 Range/Units 11:55 11:55 11:55 WBC 3.4 L (4.5-12.0) X10-3/uL RBC 5.62 (4.30-5.75) x10(6)uL Hgb 15.6 H D (11.5-15.5) g/dL Hct 49.8 D (30.0-51.3) % MCV 88.7 (80-96) fL MCH 27.8 (27.7-33.6) pg MCHC 31.4 L (32.2-35.4) g/dL RDW 17.1 H (11.5-15.5) % Plt Count 83 L (125-369) X10(3)uL MPV 8.8 (7.4-10.4) fL Neut % (Auto) 57.0 (46-82) % Lymph % (Auto) 31.4 (13-37) % [place] % (Auto) 9.7 (4-12) % Eos % (Auto) 1 (1.0-5.0) % Baso % (Auto) 1 (0-2) % Neut # (Auto) 2.0 (1.6-8.3) # Lymph # (Auto) 1.1 (0.6-5.0) # [place] # (Auto) 0.3 (0.0-1.3) # Eos # (Auto) 0.0 (0.0-0.8) # Baso # (Auto) 0.0 (0.0-0.2) # PT 11.0 (8.7-11.1) INR 1.09 (0.89-1.13) Sodium 136 (135-145) mmol/L Potassium 4.1 (3.5-5.3) mmol/L Chloride 101 (100-110) mmol/L Carbon Dioxide 26 (21-32) mmol/L BUN 21 H (7-18) mg/dL Creatinine 1.7 H (0.70-1.30) mg/dL Est Cr Clr Drug Dosing 55.92 mL/min Estimated GFR (MDRD) 41 L (>60) BUN/Creatinine Ratio 12.4 (9-20) Glucose 121 H (80-116) mg/dL Lactic Acid (0.4-2.2) mmol/L Calcium 8.9 (8.6-10.2) mg/dL Phosphorus (2.6-4.6) mg/dL Magnesium (1.8-2.5) mg/dL C-Reactive Protein (0.5-0.9) mg/dL Urine Color (YELLOW) Urine Appearance (CLEAR) Urine pH (5.0-6.5) Ur Specific [place] (1.010-1.025) Urine Protein (NEGATIVE) mg/dL Urine Glucose (UA) (NEGATIVE) mg/dL Urine Ketones (NEGATIVE) mg/dL Urine Occult Blood (NEGATIVE) Urine Nitrite (NEGATIVE) Urine Bilirubin (NEGATIVE) Urine Urobilinogen (NEGATIVE) mg/dL Ur Leukocyte Esterase (NEGATIVE) Urine WBC (0) Ur Squamous Epith Cells (NS,R,O) Urine Bacteria (NS) 09/09/17 09/09/17 09/09/17 Range/Units 11:55 11:55 12:39 WBC (4.5-12.0) X10-3/uL RBC (4.30-5.75) x10(6)uL Hgb (11.5-15.5) g/dL Hct (30.0-51.3) % MCV (80-96) fL MCH (27.7-33.6) pg MCHC (32.2-35.4) g/dL RDW (11.5-15.5) % Plt Count (125-369) X10(3)uL MPV (7.4-10.4) fL Neut % (Auto) (46-82) % Lymph % (Auto) (13-37) % [place] % (Auto) (4-12) % Eos % (Auto) (1.0-5.0) % Baso % (Auto) (0-2) % Neut # (Auto) (1.6-8.3) # Lymph # (Auto) (0.6-5.0) # [place] # (Auto) (0.0-1.3) # Eos # (Auto) (0.0-0.8) # Baso # (Auto) (0.0-0.2) # PT (8.7-11.1) INR (0.89-1.13) Sodium (135-145) mmol/L Potassium (3.5-5.3) mmol/L Chloride (100-110) mmol/L Carbon Dioxide (21-32) mmol/L BUN (7-18) mg/dL Creatinine (0.70-1.30) mg/dL Est Cr Clr Drug Dosing mL/min Estimated GFR (MDRD) (>60) BUN/Creatinine Ratio (9-20) Glucose (80-116) mg/dL Lactic Acid 0.5 (0.4-2.2) mmol/L Calcium (8.6-10.2) mg/dL Phosphorus (2.6-4.6) mg/dL Magnesium (1.8-2.5) mg/dL C-Reactive Protein 2.3 H (0.5-0.9) mg/dL Urine Color Yellow (YELLOW) Urine Appearance Clear (CLEAR) Urine pH 6.0 (5.0-6.5) Ur Specific [place] 1.010 (1.010-1.025) Urine Protein Negative (NEGATIVE) mg/dL Urine Glucose (UA) Normal (NEGATIVE) mg/dL Urine Ketones Negative (NEGATIVE) mg/dL Urine Occult Blood Negative (NEGATIVE) Urine Nitrite Negative (NEGATIVE) Urine Bilirubin Negative (NEGATIVE) Urine Urobilinogen Normal (NEGATIVE) mg/dL Ur Leukocyte Esterase Negative (NEGATIVE) Urine WBC 0-5 (0) Ur Squamous Epith Cells Occasional (NS,R,O) Urine Bacteria Few H (NS) 09/10/17 09/10/17 09/11/17 Range/Units 06:53 06:53 08:05 WBC 2.4 L 2.3 L (4.5-12.0) X10-3/uL RBC 4.88 4.76 (4.30-5.75) x10(6)uL Hgb 14.3 13.9 (11.5-15.5) g/dL Hct 42.9 42.1 (30.0-51.3) % MCV 88.0 88.4 (80-96) fL MCH 29.3 29.3 (27.7-33.6) pg MCHC 33.3 33.1 (32.2-35.4) g/dL RDW 16.5 H 16.6 H (11.5-15.5) % Plt Count 71 L 75 L (125-369) X10(3)uL MPV 8.6 8.3 (7.4-10.4) fL Neut % (Auto) 29.7 L 32.4 L (46-82) % Lymph % (Auto) 52.5 H 55.8 H (13-37) % [place] % (Auto) 15.6 H 9.4 (4-12) % Eos % (Auto) 1 2 (1.0-5.0) % Baso % (Auto) 1 1 (0-2) % Neut # (Auto) 0.7 L 0.7 L (1.6-8.3) # Lymph # (Auto) 1.3 1.4 (0.6-5.0) # [place] # (Auto) 0.4 0.2 (0.0-1.3) # Eos # (Auto) 0.0 0.0 (0.0-0.8) # Baso # (Auto) 0.0 0.0 (0.0-0.2) # PT (8.7-11.1) INR (0.89-1.13) Sodium 140 (135-145) mmol/L Potassium 3.9 (3.5-5.3) mmol/L Chloride 109 D (100-110) mmol/L Carbon Dioxide 23 (21-32) mmol/L BUN 25 H (7-18) mg/dL Creatinine 1.6 H (0.70-1.30) mg/dL Est Cr Clr Drug Dosing 59.41 mL/min Estimated GFR (MDRD) 44 L (>60) BUN/Creatinine Ratio 15.6 (9-20) Glucose 90 (80-116) mg/dL Lactic Acid (0.4-2.2) mmol/L Calcium 8.4 L (8.6-10.2) mg/dL Phosphorus 2.5 L (2.6-4.6) mg/dL Magnesium 1.7 L (1.8-2.5) mg/dL C-Reactive Protein (0.5-0.9) mg/dL Urine Color (YELLOW) Urine Appearance (CLEAR) Urine pH (5.0-6.5) Ur Specific [place] (1.010-1.025) Urine Protein (NEGATIVE) mg/dL Urine Glucose (UA) (NEGATIVE) mg/dL Urine Ketones (NEGATIVE) mg/dL Urine Occult Blood (NEGATIVE) Urine Nitrite (NEGATIVE) Urine Bilirubin (NEGATIVE) Urine Urobilinogen (NEGATIVE) mg/dL Ur Leukocyte Esterase (NEGATIVE) Urine WBC (0) Ur Squamous Epith Cells (NS,R,O) Urine Bacteria (NS) 09/11/17 09/11/17 Range/Units 08:05 08:05 WBC (4.5-12.0) X10-3/uL RBC (4.30-5.75) x10(6)uL Hgb (11.5-15.5) g/dL Hct (30.0-51.3) % MCV (80-96) fL MCH (27.7-33.6) pg MCHC (32.2-35.4) g/dL RDW (11.5-15.5) % Plt Count (125-369) X10(3)uL MPV (7.4-10.4) fL Neut % (Auto) (46-82) % Lymph % (Auto) (13-37) % [place] % (Auto) (4-12) % Eos % (Auto) (1.0-5.0) % Baso % (Auto) (0-2) % Neut # (Auto) (1.6-8.3) # Lymph # (Auto) (0.6-5.0) # [place] # (Auto) (0.0-1.3) # Eos # (Auto) (0.0-0.8) # Baso # (Auto) (0.0-0.2) # PT (8.7-11.1) INR (0.89-1.13) Sodium 142 (135-145) mmol/L Potassium 3.8 (3.5-5.3) mmol/L Chloride 110 (100-110) mmol/L Carbon Dioxide 22 (21-32) mmol/L BUN 24 H (7-18) mg/dL Creatinine 1.5 H (0.70-1.30) mg/dL Est Cr Clr Drug Dosing 63.38 mL/min Estimated GFR (MDRD) 48 L (>60) BUN/Creatinine Ratio 16.0 (9-20) Glucose 101 (80-116) mg/dL Lactic Acid (0.4-2.2) mmol/L Calcium 8.1 L (8.6-10.2) mg/dL Phosphorus (2.6-4.6) mg/dL Magnesium (1.8-2.5) mg/dL C-Reactive Protein 2.4 H (0.5-0.9) mg/dL Urine Color (YELLOW) Urine Appearance (CLEAR) Urine pH (5.0-6.5) Ur Specific [place] (1.010-1.025) Urine Protein (NEGATIVE) mg/dL Urine Glucose (UA) (NEGATIVE) mg/dL Urine Ketones (NEGATIVE) mg/dL Urine Occult Blood (NEGATIVE) Urine Nitrite (NEGATIVE) Urine Bilirubin (NEGATIVE) Urine Urobilinogen (NEGATIVE) mg/dL Ur Leukocyte Esterase (NEGATIVE) Urine WBC (0) Ur Squamous Epith Cells (NS,R,O) Urine Bacteria (NS) SAUL Results - Last 24 hrs: Microbiology 09/10/17 08:40 Gram Stain - Final Sputum - Expectorated Sputum Culture - Preliminary NORMAL RESPIRATORY FRANCISCO JAVIER 1 DAY 09/09/17 12:00 Aerobic Blood Culture - Preliminary Blood - Venous - Lab Draw NO GROWTH AFTER 1 DAY Anaerobic Blood Culture - Preliminary NO GROWTH AFTER 1 DAY 09/09/17 11:55 Aerobic Blood Culture - Preliminary Blood - Venous NO GROWTH AFTER 1 DAY Anaerobic Blood Culture - Preliminary NO GROWTH AFTER 1 DAY Med Orders - Current: Current Medications Acetaminophen (Tylenol) 650 mg PO Q4H PRN PRN Reason: Pain (Mild 1-3)/fever Last Admin: 09/09/17 20:21 Dose: 650 mg Atorvastatin Calcium (Lipitor) 10 mg PO MoWeFr@2100 [facility] Last Admin: 09/10/17 21:03 Dose: 10 mg Carvedilol (Coreg) 12.5 mg PO [facility] Last Admin: 09/11/17 08:28 Dose: 12.5 mg Carvedilol (Coreg) 3.125 mg PO [facility] Last Admin: 09/11/17 08:29 Dose: 3.125 mg Fluticasone Propionate (Flonase) 0 gm NASBOTH BID [facility] Stop: 09/15/17 09:01 Last Admin: 09/11/17 08:30 Dose: 1 spray Furosemide (Lasix) 40 mg PO DAILY PRN PRN Reason: Edema Furosemide (Lasix) 40 mg PO Q2D [facility] Last Admin: 09/10/17 09:15 Dose: 40 mg Mycophenolate Mofetil (Cellcept) 250 mg PO [facility] Last Admin: 09/11/17 08:28 Dose: 250 mg Multivitamin With Minerals [Multiple Vitamin] 1 TabOwn Med 1 tab PO DAILY [facility] Last Admin: 09/11/17 08:31 Dose: 1 tab Magnesium Chloride [ Slow-Mag] 71.5 Mg Own Med 71.5 mg PO [facility] Last Admin: 09/11/17 08:29 Dose: 71.5 mg Phospha 250 Neutral Tablet] 250 MgOwn Med 250 mg PO [facility] Last Admin: 09/11/17 08:30 Dose: 250 mg Pantoprazole Sodium (Protonix) 40 mg PO 1944 [facility] Last Admin: 09/10/17 20:20 Dose: 40 mg Prednisone (Prednisone) 10 mg PO DAILY [facility] Last Admin: 09/11/17 08:31 Dose: 10 mg Sodium Chloride (Saline Flush) 10 ml FLUSH ASDIRECTED PRN PRN Reason: Keep Vein Open Last Admin: 09/09/17 11:57 Dose: 10 ml Sodium Chloride (Saline Flush) 10 ml FLUSH ASDIRECTED PRN PRN Reason: Keep Vein Open Tacrolimus (Prograf) 2 mg PO [facility] Last Admin: 09/11/17 08:30 Dose: 2 mg Zolpidem Tartrate (Ambien) 5 mg PO BEDTIME PRN PRN Reason: Sleep Discontinued Medications Acetaminophen (Tylenol) 650 mg PO NOW STA Stop: 09/09/17 12:36 Last Admin: 09/09/17 12:48 Dose: 650 mg Atorvastatin Calcium (Lipitor) 10 mg PO BEDTIME [facility] Carvedilol (Coreg) 12.5 mg PO BID [facility] Carvedilol (Coreg) 15.625 mg PO BID [facility] Last Admin: 09/10/17 08:07 Dose: 15.625 mg Carvedilol (Coreg) 12.5 mg PO [facility] Last Admin: 09/10/17 08:11 Dose: Not Given Carvedilol (Coreg) 3.125 mg PO [facility] Last Admin: 09/10/17 08:11 Dose: Not Given Ceftriaxone Sodium (Rocephin) Confirm Administered Dose 1,000 mg .ROUTE .[facility] ONE Stop: 09/09/17 12:43 Last Admin: 09/09/17 12:48 Dose: Not Given Ceftriaxone Sodium (Rocephin) Confirm Administered Dose 1,000 mg .ROUTE .[facility] ONE Stop: 09/09/17 12:45 Last Admin: 09/09/17 12:48 Dose: Not Given Heparin Sodium (Porcine) (Heparin Sodium) Confirm Administered Dose 5,000 units .ROUTE .[facility] ONE Stop: 09/09/17 12:47 Last Admin: 09/09/17 12:53 Dose: Not Given Sodium Chloride (Normal Saline) 1,000 mls @ 999 mls/hr IV .[facility] ONE Stop: 09/09/17 12:42 Last Admin: 09/09/17 11:57 Dose: 999 mls/hr Ceftriaxone Sodium 1,000 mg/ (Sodium Chloride) 50 mls @ 100 mls/hr IV ONETIME ONE Stop: 09/09/17 13:01 Last Admin: 09/09/17 12:49 Dose: 100 mls/hr Sodium Chloride (Normal Saline) 1,000 mls @ 125 mls/hr IV ASDIRECTED [facility] Last Admin: 09/11/17 04:49 Dose: 125 mls/hr Azithromycin 500 mg/ Sodium (Chloride) 250 mls @ 250 mls/hr IV Q24H [facility] Last Admin: 09/10/17 14:28 Dose: 250 mls/hr Mycophenolate Mofetil (Cellcept) 250 mg PO BIDMEALS [facility] Last Admin: 09/10/17 08:07 Dose: 250 mg Non-Formulary Medication (Fluorouracil [Efudex 5% Cream]) 1 applic TOP BID [facility] Magnesium Chloride [ Slow-Mag] 71.5 Mg Own Med 71.5 mg PO BID [facility] Last Admin: 09/10/17 08:08 Dose: 71.5 mg Non-Formulary Medication (Phosphorus #1 [Phospha 250 Neutral Tablet]) 250 mg PO DAILY [facility] Non-Formulary Medication (Phosphorus #1 [Phospha 250 Neutral Tablet]) 250 mg PO DAILY [facility] Phospha 250 Neutral Tablet] 250 MgOwn Med 250 mg PO BID [facility] Last Admin: 09/10/17 08:08 Dose: 250 mg Pantoprazole Sodium (Protonix) 40 mg PO DAILY [facility] Prednisone (Prednisone) 5 mg PO DAILY [facility] Tacrolimus (Prograf) 2 mg PO BID [facility] Last Admin: 09/10/17 08:08 Dose: 2 mg - Exam Physical Findings Comments:: Quality Assessment: DVT Prophylaxis General: Alert, Oriented, Cooperative. No: Mild Distress HEENT: Conjunctiva Clear,Nares Patent, Posterior Pharynx Clear, Pupils Equal, Other ( MMM. NO WARMTH OR TENDERNESS TO THE FRONTAL, MAXILLARY SINUSES. NO MASTOID, or TRIGUS TENDERNESS) Neck: Supple, Trachea Midline, +2 Carotid Pulse wo Bruit, Full Range of Motion. No: Lymphadenopathy, Carotid Bruit, JVD, Thyromegaly Lungs: Decreased Breath Sounds, Rales (COURSE INSPIRATORY RALES NOTED AT THE ANTERIOR CHEST ALONG THE RIGHT MID/LOWER LOBE. Likely chronic but improved a bit. NO RETRACTION OR INCREASE WORK OF BREATHING. NO SPLINTING. NO TENDERNESS TO PALPATION. ) Cardiovascular: Regular Rate, Regular Rhythm, Normal S1, Normal S2 GI/Abdominal Exam: Normal Bowel Sounds, Soft, Non-Tender. No: Guarding, Rigid Back Exam: Normal Inspection. No: CVA Tenderness (R), CVA Tenderness (L), Paraspinal Tenderness, Vertebral Tenderness Extremities: Normal Range of Motion, Non-Tender, No Pedal Edema, Normal Capillary Refill, Increased Warmth. No: Joint Swelling, Leg Pain Skin: Warm, Dry, Intact Neurological: Cranial Nerves Intact, Strength Equal Bilateral, Normal Speech Neuro Extensive - Mental Status: Alert, Oriented x3, Normal Mood/Affect
[2017-09-11 11:22] VITALS: BP 141/85
--- NOTE | 2017-09-13 14:02 | PCM.PN ---
- General Info Date of Service: 09/10/17 Subjective Update: Starting felt that better. Urine output is improved. His appetite is improving. Still feels somewhat congested in the head and the chest. Cough is improving. Feels his strength is getting better. Afebrile for 24 hours. Tolerating oral medications still getting IV antibiotic. Denies any other concerns. No longer having fevers or chills. No nausea. No chest pain or pressure. No back pain. No flank pain. No pelvic or abdominal pain. No joint swelling or tenderness. No rash. No calf swelling or tenderness. No bowel movement, but he hasn't eaten in the last couple of days. Still passing flatus. Denies hematuria or dysuria. - Review of Systems Systems Review Comment:: See history of present illness - Patient Data Vitals - Most Recent: reviewed and documented in chart Weight - Most Recent: 108.012 kg Daniel Results Last 24 Hours: Microbiology 09/09/17 11:55 Aerobic Blood Culture - Preliminary Blood - Venous NO GROWTH AFTER 1 DAYS Anaerobic Blood Culture - Preliminary NO GROWTH AFTER 1 DAYS Med Orders - Current: Current Medications Acetaminophen (Tylenol) 650 mg PO NOW STA Stop: 09/09/17 12:36 Last Admin: 09/09/17 12:48 Dose: 650 mg Acetaminophen (Tylenol) 650 mg PO Q4H PRN PRN Reason: Pain (Mild 1-3)/fever Last Admin: 09/09/17 20:21 Dose: 650 mg Atorvastatin Calcium (Lipitor) 10 mg PO BEDTIME [facility] Atorvastatin Calcium (Lipitor) 10 mg PO MoWeFr@2100 [facility] Last Admin: 09/10/17 21:03 Dose: 10 mg Carvedilol (Coreg) 12.5 mg PO BID [facility] Carvedilol (Coreg) 15.625 mg PO BID [facility] Last Admin: 09/10/17 08:07 Dose: 15.625 mg Carvedilol (Coreg) 12.5 mg PO [facility] Last Admin: 09/10/17 08:11 Dose: Not Given Carvedilol (Coreg) 3.125 mg PO [facility] Last Admin: 09/10/17 08:11 Dose: Not Given Carvedilol (Coreg) 12.5 mg PO [facility] Last Admin: 09/11/17 08:28 Dose: 12.5 mg Carvedilol (Coreg) 3.125 mg PO 799,1944 [facility] Last Admin: 09/11/17 08:29 Dose: 3.125 mg Ceftriaxone Sodium (Rocephin) Confirm Administered Dose 1,000 mg .ROUTE .STK- MED ONE Stop: 09/09/17 12:43 Last Admin: 09/09/17 12:48 Dose: Not Given Ceftriaxone Sodium (Rocephin) Confirm Administered Dose 1,000 mg .ROUTE .K- MED ONE Stop: 09/09/17 12:45 Last Admin: 09/09/17 12:48 Dose: Not Given Fluticasone Propionate (Flonase) 0 gm NASBOTH BID [facility] Stop: 09/15/17 09:01 Last Admin: 09/11/17 08:30 Dose: 1 spray Furosemide (Lasix) 40 mg PO DAILY PRN PRN Reason: Edema Furosemide (Lasix) 40 mg PO Q2D [facility] Last Admin: 09/10/17 09:15 Dose: 40 mg Heparin Sodium (Porcine) (Heparin Sodium) Confirm Administered Dose 5,000 units .ROUTE .[facility]-MED ONE Stop: 09/09/17 12:47 Last Admin: 09/09/17 12:53 Dose: Not Given Sodium Chloride (Normal Saline) 1,000 mls @ 999 mls/hr IV .BOLUS ONE Stop: 09/09/17 12:42 Last Admin: 09/09/17 11:57 Dose: 999 mls/hr Ceftriaxone Sodium 1,000 mg/ (Sodium Chloride) 50 mls @ 100 mls/hr IV ONETIME ONE Stop: 09/09/17 13:01 Last Admin: 09/09/17 12:49 Dose: 100 mls/hr Sodium Chloride (Normal Saline) 1,000 mls @ 125 mls/hr IV ASDIRECTED [facility] Last Admin: 09/11/17 04:49 Dose: 125 mls/hr Azithromycin 500 mg/ Sodium (Chloride) 250 mls @ 250 mls/hr IV Q24H [facility] Last Admin: 09/10/17 14:28 Dose: 250 mls/hr Mycophenolate Mofetil (Cellcept) 250 mg PO BIDMEALS [facility] Last Admin: 09/10/17 08:07 Dose: 250 mg Mycophenolate Mofetil (Cellcept) 250 mg PO [facility] Last Admin: 09/11/17 08:28 Dose: 250 mg Non-Formulary Medication (Fluorouracil [Efudex 5% Cream]) 1 applic TOP BID [facility] Magnesium Chloride [ Slow-Mag] 71.5 Mg Own Med 71.5 mg PO BID [facility] Last Admin: 09/10/17 08:08 Dose: 71.5 mg Multivitamin With Minerals [Multiple Vitamin] 1 TabOwn Med 1 tab PO DAILY [facility] Last Admin: 09/11/17 08:31 Dose: 1 tab Non-Formulary Medication (Phosphorus #1 [Phospha 250 Neutral Tablet]) 250 mg PO DAILY [facility] Non-Formulary Medication (Phosphorus #1 [Phospha 250 Neutral Tablet]) 250 mg PO DAILY [facility] Phospha 250 Neutral Tablet] 250 MgOwn Med 250 mg PO BID [facility] Last Admin: 09/10/17 08:08 Dose: 250 mg Magnesium Chloride [ Slow-Mag] 71.5 Mg Own Med 71.5 mg PO 799,1944 [facility] Last Admin: 09/11/17 08:29 Dose: 71.5 mg Phospha 250 Neutral Tablet] 250 MgOwn Med 250 mg PO [facility] Last Admin: 09/11/17 08:30 Dose: 250 mg Pantoprazole Sodium (Protonix) 40 mg PO DAILY [facility] Pantoprazole Sodium (Protonix) 40 mg PO 1944 [facility] Last Admin: 09/10/17 20:20 Dose: 40 mg Prednisone (Prednisone) 5 mg PO DAILY [facility] Prednisone (Prednisone) 10 mg PO DAILY [facility] Last Admin: 09/11/17 08:31 Dose: 10 mg Sodium Chloride (Saline Flush) 10 ml FLUSH ASDIRECTED PRN PRN Reason: Keep Vein Open Last Admin: 09/09/17 11:57 Dose: 10 ml Sodium Chloride (Saline Flush) 10 ml FLUSH ASDIRECTED PRN PRN Reason: Keep Vein Open Tacrolimus (Prograf) 2 mg PO BID [facility] Last Admin: 09/10/17 08:08 Dose: 2 mg Tacrolimus (Prograf) 2 mg PO [facility] Last Admin: 09/11/17 08:30 Dose: 2 mg Zolpidem Tartrate (Ambien) 5 mg PO BEDTIME PRN PRN Reason: Sleep - Exam Physical Findings Comments:: Quality Assessment: DVT Prophylaxis General: Alert, Oriented, Cooperative. No: Mild Distress HEENT: Conjunctiva Clear,Nares Patent, Posterior Pharynx Clear, Pupils Equal, Other (DRY MMM. NO WARMTH OR TENDERNESS TO THE FRONTAL, MAXILLARY SINUSES. NO MASTOID, TRIGUS, OR SCALP TENDERNESS/LESIONS. ) Neck: Supple, Trachea Midline, +2 Carotid Pulse wo Bruit, Full Range of Motion. No: Lymphadenopathy, Carotid Bruit, JVD, Thyromegaly Lungs: Decreased Breath Sounds, Rales (COURSE INSPIRATORY RALES NOTED AT THE ANTERIOR CHEST ALONG THE RIGHT MID/LOWER LOBE. Likely chronic but improved a bit. NO RETRACTION OR INCREASE WORK OF BREATHING. NO SPLINTING. NO TENDERNESS TO PALPATION. ) Cardiovascular: Regular Rate, Regular Rhythm, Normal S1, Normal S2 GI/Abdominal Exam: Normal Bowel Sounds, Soft, Non-Tender. No: Guarding, Rigid Back Exam: Normal Inspection. No: CVA Tenderness (R), CVA Tenderness (L), Paraspinal Tenderness, Vertebral Tenderness Extremities: Normal Range of Motion, Non-Tender, No Pedal Edema, Normal Capillary Refill, Increased Warmth. No: Joint Swelling, Leg Pain Skin: Warm, Dry, Intact Neurological: Cranial Nerves Intact, Strength Equal Bilateral, Normal Speech Neuro Extensive - Mental Status: Alert, Oriented x3, Normal Mood/Affect - Problem List & Annotations (1) CAP (community acquired pneumonia) SNOMED Code(s): 254875619 Code(s): J18.9 - PNEUMONIA, UNSPECIFIED ORGANISM Status: Acute Qualifiers: Laterality: right Lung location: lower lobe of lung Qualified Code(s): J18.1 - Lobar pneumonia, unspecified organism (2) Febrile respiratory illness SNOMED Code(s): 16854234 Code(s): J98.9 - RESPIRATORY DISORDER, UNSPECIFIED; R50.9 - FEVER, UNSPECIFIED Status: Acute (3) Secondary immune deficiency disorder SNOMED Code(s): 04896697 Code(s): D89.89 - OTH DISRD INVOLVING THE IMMUNE MECHANISM, NEC Status: Chronic (4) Drug-induced immune thrombocytopenia SNOMED Code(s): 17669995 Code(s): D69.59 - OTHER SECONDARY THROMBOCYTOPENIA; T50.905A - ADVERSE EFFECT OF UNSP DRUG/MEDS/BIOL SUBST, INIT Status: Chronic (5) Renal impairment SNOMED Code(s): 484023080 Code(s): N28.9 - DISORDER OF KIDNEY AND URETER, UNSPECIFIED Status: Chronic (6) Renovascular hypertension SNOMED Code(s): 129864444 Code(s): I15.0 - RENOVASCULAR HYPERTENSION Status: Chronic Priority: High (7) Transplant of kidney SNOMED Code(s): 352906638 Code(s): Z94.0 - KIDNEY TRANSPLANT STATUS Status: Chronic Annotation/ Comment:: Continue transplant antirejection meds. (8) Cardiomyopathy SNOMED Code(s): 36591490 Code(s): I42.9 - CARDIOMYOPATHY, UNSPECIFIED Status: Acute Priority: High - Problem List Review Problem List Initiated/Reviewed/Updated: Yes - Assessment Assessment:: see above. - Plan Plan:: continue current cares and if remains afebrile 48 h will d/c to home on oral abx.
== END 2017-09-11 10:35 | disposition home or self-care (01) ==
LOC: FB.ED 11:18 → FB.MS 12:59
PROVIDERS: ADMIT Family Medicine; ATTEND Family Medicine
DX: J18.1 Lobar pneumonia, unspecified organism (principal); J98.9 Respiratory disorder, unspecified; R50.9 Fever, unspecified; D89.89 Other specified disorders involving the immune mechanism, not elsewhere classified; D69.59 Other secondary thrombocytopenia; N28.9 Disorder of kidney and ureter, unspecified; I15.0 Renovascular hypertension; I42.9 Cardiomyopathy, unspecified; I10 Essential (primary) hypertension; I50.9 Heart failure, unspecified; K21.9 Gastro-esophageal reflux disease without esophagitis; E21.3 Hyperparathyroidism, unspecified; Z94.0 Kidney transplant status; Z79.2 Long term (current) use of antibiotics; Z79.899 Other long term (current) drug therapy; Z88.1 Allergy status to other antibiotic agents; Z88.8 Allergy status to other drugs, medicaments and biological substances
CPT/HCPCS: 36415; 71046; 80048; 81001; 83605; 83735; 84100; 85025; 85610; 86140; 87040; 87070; 87205; 94150; 96361; 96365; 99284; A9270; J0456; J0696; J7040; J7050

== ENCOUNTER 2020-06-16 11:01 | Inpatient (IN) | payer OTHER ==
[2020-06-16] MEDS: Sodium Chloride 0.9% 1,000 ML IV SCH ×2 (12:06→18:33)
--- NOTE | 2020-06-16 12:34 | EDM.PDOC ---
ED HPI GENERAL MEDICAL PROBLEM - General Chief Complaint: General Stated Complaint: COVID POSITIVE LOW O2 Time Seen by Provider: 06/16/20 11:05 Source of Information: Reports: Patient History Limitations: Reports: No Limitations - History of Present Illness INITIAL COMMENTS - FREE TEXT/NARRATIVE: Patient presented to the ED because of increasing dyspnea and fatigue. He was diagnosed with COVID 19 on 06/02/31 and had the Bamlanivimab infusion on 06/03/20. His dyspnea got worse on 06/13/20 accompanied by chills but no fever and headache. There is no nausea/vomiting, diarrhea. head Pain Score (Numeric/FACES): 3 - Related Data Allergies Allergy/AdvReac Type Severity Reaction Status Date / Time amlodipine besylate Allergy Unknown Swelling Verified 06/16/20 11:34 [From Norvasc] minoxidil Allergy Unknown Swelling Verified 06/16/20 11:34 alcohol Allergy Rash Verified 06/16/20 11:34 clonidine Allergy Difficulty Verified 06/16/20 11:34 Breathing levofloxacin [From Levaquin] Allergy Cannot Verified 06/16/20 11:34 Remember Home Meds: Home Meds Acetaminophen [Tylenol Extra Strength] 1,000 mg PO Q4H PRN 08/02/13 [History] Acetaminophen/Diphenhydramine [Tylenol Pm Ex-Strength Caplet] 1 ea PO BEDTIME PRN 12/03/15 [History] Amoxicillin/Potassium Clav [Amox-Clav 500-125 mg Tablet] 1 ea PO ASDIRECTED PRN 12/03/15 [History] fluorouraciL [Efudex 5% Cream] 1 applic TOP BID 12/03/15 [History] Multivitamin with Minerals [Multiple Vitamin] 1 tab PO DAILY 09/09/17 [History] Furosemide [Lasix] 40 mg PO Q2D 09/10/17 [History] Amoxicillin/Potassium Clav [Augmentin 500-125 Tablet] 1 each PO Q8H 5 Days #15 tablet 09/11/17 [Rx] Azithromycin [Zithromax] 250 mg PO DAILY #4 tab 09/11/17 [Rx] Fluticasone Propionate [Flonase] 1 spr NASBOTH BID 5 Days #1 bottle 09/11/17 [Rx] Furosemide [Lasix] 40 mg PO Q2D #60 tablet 09/11/17 [Rx] Magnesium Chloride [Slow-Mag] 71.5 mg PO 0800,194409/11/17 [Rx] Pantoprazole Sodium 40 mg PO 1744 #60 tablet. 09/11/17 [Rx] Pantoprazole [ProTONIX] 40 mg PO 1944 #60 tab.cr 09/11/17 [Rx] Phosphorus #1 [Phospha 250 Neutral Tablet] 250 mg PO 0800,194409/11/17 [Rx] Tacrolimus [Prograf] 2 mg PO 0800,1944 cap 09/11/17 [Rx] atorvaSTATin [Lipitor] 10 mg PO MoWeFr@2100 #60 tablet 09/11/17 [Rx] carvediloL [Coreg] 3.125 mg PO 0800,1944 tablet 09/11/17 [Rx] carvediloL [Coreg] 12.5 mg PO 0800,1944 tablet 09/11/17 [Rx] mycophenolate mofetiL [Cellcept] 250 mg PO 0800,1944 cap 09/11/17 [Rx] predniSONE 10 mg PO DAILY tablet 09/11/17 [Rx] Past Medical History HEENT History: Reports: Impaired Vision (bILATERAL HEARTNG DEVICES WORN), Other (See Below) Other HEENT History: ACTINIC DERMATOSIS, MALIGNANT NEOPLASM OF EYELID, INCLUDING CANTHUS Cardiovascular History: Reports: Cardiomyopathy, Heart Failure, Hypertension, Other (See Below) (RIGHT). Denies: Afib, Aneurysm, Angina, Arrhythmia, Bacterial Endocarditis, Blood Clots/VTE/DVT, Heart Murmur, Heart Valve Replacement, [place], Pacemaker, PVD, Stents Other Cardiovascular History: RUE AV FISTUAL ALONG THE FOREARM, HEALTHY AND FUNCTIONAL. HX OF DIALYSIS 2 YEARS PRIOR TO TRANSPLANTS. Respiratory History: Reports: Interstitial Lung Disease, Pulmonary Fibrosis, SOB Gastrointestinal History: Reports: GERD, Other (See Below) Other Gastrointestinal History: HYDROCELE Genitourinary History: Reports: Dialysis, Dialysis, Peritoneal, Prostate Disorder, Renal Disease, Other (See Below) Other Genitourinary History: home hemodialysis Neurological History: Reports: None Psychiatric History: Reports: None Endocrine/Metabolic History: Reports: Hyperparathyroidism Other Endocrine/Metabolic History: PARATHYROIDECTOMY R/T 2NDARY FROM RENAL DISEASE Hematologic History: Reports: Anemia, Blood Transfusion(s) Other Hematologic History: ANEMIA R/T KIDNEY DISEASE Immunologic History: Reports: None, Immunosuppression, 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 ROSACIA, SEBACCIOUS CYSTS INTERMETTENTLY TO THE BACK. - Infectious Disease History Infectious Disease History: Reports: Chicken Pox, Measles, Mumps, Rubella, Shingles - Past Surgical History HEENT Surgical History: Reports: Oral Surgery Other HEENT Surgeries/Procedures: PARATHYROIDECTOMY Cardiovascular Surgical History: Reports: Vascular Surgery (RIGHT UE FISTULA FOR DIALYSIS IF NEEDED.) Respiratory Surgical History: Reports: None GI Surgical History: Reports: Colonoscopy Male Surgical History: Reports: Prostate Biopsy, Prostatectomy, Vasectomy, Other (See Below) (RIGHT KIDNEY REPLACE X 3) Endocrine Surgical History: Reports: Parathyroidectomy Neurological Surgical History: Reports: None Musculoskeletal Surgical History: Reports: Hip Replacement, Other (See Below) - Past Imaging History Past Imaging History: Reports: Angiography, Cardiac Echo, EEG, MRI, Venous Doppler, Xray Social & Family History - Family History Family Medical History: No Pertinent Family History - Caffeine Use Caffeine Use: Reports: Coffee Other Caffeine Use: 1-2 cups per day - Living Situation & Occupation Living situation: Reports: , with Spouse 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[employer].) ED ROS GENERAL - Review of Systems Review Of Systems: See Below Constitutional: Reports: Chills, Malaise, Weakness HEENT: Reports: No Symptoms Respiratory: Reports: Shortness of Breath Cardiovascular: Reports: No Symptoms Endocrine: Reports: No Symptoms GI/Abdominal: Reports: No Symptoms : Reports: No Symptoms Musculoskeletal: Reports: No Symptoms Skin: Reports: No Symptoms Neurological: Reports: No Symptoms Psychiatric: Reports: No Symptoms ED EXAM, GENERAL - Physical Exam Exam: See Below Exam Limited By: No Limitations General Appearance: Alert, No Apparent Distress Eye Exam: Bilateral Eye: PERRL Ears: Normal External Exam Nose: Normal Inspection, Normal Mucosa Throat/Mouth: Normal Inspection, Normal Lips, Normal Teeth Head: Atraumatic, Normocephalic Neck: Normal Inspection, Supple, Non-Tender, Full Range of Motion Respiratory/Chest: No Respiratory Distress, Decreased Breath Sounds Cardiovascular: Normal Peripheral Pulses, Regular Rate, Rhythm, No Edema GI/Abdominal: Normal Bowel Sounds, Soft, Non-Tender, No Organomegaly Back Exam: Normal Inspection, Full Range of Motion Extremities: Normal Inspection, Normal Range of Motion, Non-Tender Neurological: Alert, Oriented, CN II-XII Intact, Normal Cognition Psychiatric: Normal Affect, Normal Mood Course - Vital Signs Text/Narrative:: Labs/CXR was reviewed with aram and his NS @ 250 ml/hr O2 VNC - Orders/Labs/Meds Orders: Active Orders 24 hr Category Date Time Status Oxygen Therapy [RC] ASDIRECTED Care 06/16/20 11:37 Active Chest 1V Frontal [CR] Stat Exams 06/16/20 11:35 Taken Sodium Chloride 0.9% [Normal Saline] 1,000 ml Med 06/16/20 11:45 Active IV ASDIRECTED Sodium Chloride 0.9% [Saline Flush] Med 06/16/20 11:35 Active 10 ml FLUSH ASDIRECTED PRN Saline Lock Insert [OM.PC] Routine Oth 06/16/20 11:35 Ordered Medication Orders Sodium Chloride (Normal Saline) 1,000 mls @ 250 mls/hr IV ASDIRECTED RICKIE Last Admin: 06/16/20 12:06 Dose: 250 mls/hr Documented by: REGINA Sodium Chloride (Saline Flush) 10 ml FLUSH ASDIRECTED PRN PRN Reason: Keep Vein Open Labs: Laboratory Tests 06/16/20 06/16/20 06/16/20 Range/Units 11:42 11:42 11:42 WBC 5.2 (3.2-10.1) x10-3/uL RBC 4.68 (3.90-5.90) x10(6)uL Hgb 12.9 (12.9-17.7) g/dL Hct 40.8 (38.3-50.1) % MCV 87.3 (80.8-98.7) fL MCH 27.7 (27.0-33.3) pg MCHC 31.7 (28.7-35.3) g/dL RDW 16.7 H (12.4-15.0) % Plt Count 87 L (117-477) x10(3)uL MPV 8.2 (6.7-11.0) fL Neut % (Auto) 74.9 H (40.3-71.8) % Lymph % (Auto) 19.4 (15.8-45.3) % Wagoner % (Auto) 5.1 L (5.5-15.2) % Eos % (Auto) 0.3 (0.1-6.8) % Baso % (Auto) 0.3 (0.3-3.8) % Neut # (Auto) 3.9 (1.7-6.9) x10-3/uL Lymph # (Auto) 1.0 (0.5-4.5) x10-3/uL Wagoner # (Auto) 0.3 (0.0-1.2) x10-3/uL Eos # (Auto) 0.0 (0.0-0.6) x10-3/uL Baso # (Auto) 0.0 (0.0-0.3) x10-3/uL Sodium 135 (135-145) mmol/L Potassium 4.2 (3.5-5.3) mmol/L Chloride 102 (100-110) mmol/L Carbon Dioxide 21 (21-32) mmol/L BUN 30 H (7-18) mg/dL Creatinine 2.0 H* (0.70-1.30) mg/dL Est Cr Clr Drug Dosing 44.53 mL/min Estimated GFR (MDRD) 34 L (>60) BUN/Creatinine Ratio 15.0 (9-20) Glucose 130 H (80-116) mg/dL Calcium 8.1 L (8.6-10.2) mg/dL Total Bilirubin 0.6 (0.1-1.3) mg/dL AST 23 D (5-25) IU/L ALT 17 D (12-36) U/L Alkaline Phosphatase 60 (56-112) IU/L Troponin I 37.9 (4.0-60.3) pg/mL NT-Pro-B Natriuret Pep 2523 H* (<=125) pg/mL Total Protein 6.0 (6.0-8.0) g/dL Albumin 3.0 L (3.2-4.6) g/dL Globulin 3.0 g/dL Albumin/Globulin Ratio 1.0 Meds: Medications Generic Name Dose Route Start Last Admin Trade Name Freq PRN Reason Stop Dose Admin Sodium Chloride 1,000 mls @ 250 mls/hr 06/16/20 11:45 06/16/20 12:06 Normal Saline IV 250 mls/hr ASDIRECTED RICKIE Administration Sodium Chloride 10 ml 06/16/20 11:35 Saline Flush FLUSH ASDIRECTED PRN Keep Vein Open Departure - Departure Time of Disposition: 13:00 Disposition: Admitted As Inpatient 68 Condition: Good Clinical Impression: Dehydration, BRANDON (acute kidney injury), COVID-19, Thrombocytopenia - Discharge Information Referrals: Humberto Barlow MD [Primary Care Provider] - Forms: ED Department Discharge - My Orders Last 24 Hours: My Active Orders 06/16/20 11:35 Chest 1V Frontal [CR] Stat Sodium Chloride 0.9% [Saline Flush] 10 ml FLUSH ASDIRECTED PRN Saline Lock Insert [OM.PC] Routine 06/16/20 11:37 Oxygen Therapy [RC] ASDIRECTED 06/16/20 11:45 Sodium Chloride 0.9% [Normal Saline] 1,000 ml IV ASDIRECTED - Assessment/Plan Last 24 Hours: My Active Orders 06/16/20 11:35 Chest 1V Frontal [CR] Stat Sodium Chloride 0.9% [Saline Flush] 10 ml FLUSH ASDIRECTED PRN Saline Lock Insert [OM.PC] Routine 06/16/20 11:37 Oxygen Therapy [RC] ASDIRECTED 06/16/20 11:45 Sodium Chloride 0.9% [Normal Saline] 1,000 ml IV ASDIRECTED
--- NOTE | 2020-06-16 13:04 | CR ---
INDICATION: Dyspnea/COVID positive. CHEST ONE VIEW: AP upright portable view of the chest 06/16/20 was compared with 09/09/17 and 08/19/13. Extensive bilateral infiltration is noted to a mild degree sparing the apices. The heart appears enlarged. The aorta is tortuous with calcification in the arch. IMPRESSION: 1. Bilateral infiltration is noted, fairly extensive could be on the basis of process such as COVID-19 - correlate clinically. 2. ASHD with cardiomegaly - difficult to exclude a minimal or early CHF. MTDD
[2020-06-16] MEDS ORDERED: Acetaminophen 325 MG Tab PO PRN (13:49)
[2020-06-16] MEDS ORDERED: Dexamethasone 4 MG/ML SDV IVPUSH SCH (14:00)
[2020-06-16] MEDS ORDERED: Ondansetron 4 MG Tab.DIS PO PRN (14:05)
--- NOTE | 2020-06-16 14:36 | PCM.HP.2 ---
H&P History of Present Illness - General Date of Service: 06/16/20 Admit Problem/Dx: Admission Diagnosis/Problem Admission Diagnosis/Problem Pneumonia, COVID-19 Source of Information: Patient, EMS Notes Reviewed History Limitations: Reports: No Limitations - History of Present Illness Initial Comments - Free Text/Narative: Marcos started having scratchy throat on 05/30, went in and got tested on 06/02, was positive for COVID-19, received Bamlanivimab infusion on the 06/03. He did not have improvement of his symptoms, started getting more fatigued, short of breath on 06/13, decrease in appetite and drinking. Had pulse oximetry at home, was in the 80s with activity so presented to ER today. WBC was 5.2, Hgb 12.9, Platelets 87. Electrolytes unremarkable except Creatinine 2.0. History of kidney transplant x 3, on Prograf, baseline is 1.5. Chest x-ray shows bilateral patchy pneumonia consistent with COVID/viral pneumonia. Oxygen in ER was 92% on room air. He states his urination has decreased and gotten darker over the past few days. Afebrile, no chest pain, nausea, vomiting, diarrhea, abdominal pain. No rash. Has AV fistula in right forearm from when he was on dialysis prior to transplant due to congenital kidney disease. History of hypertension, normally runs 110s, also has chronic thrombocytopenia, since 2018 per our records. head Pain Score (Numeric/FACES): 3 - Related Data Allergies/Adverse Reactions: Allergies Allergy/AdvReac Type Severity Reaction Status Date / Time amlodipine besylate Allergy Unknown Swelling Verified 06/16/20 11:34 [From Norvasc] minoxidil Allergy Unknown Swelling Verified 06/16/20 11:34 alcohol Allergy Rash Verified 06/16/20 11:34 clonidine Allergy Difficulty Verified 06/16/20 11:34 Breathing levofloxacin [From Levaquin] Allergy Cannot Verified 06/16/20 11:34 Remember Home Medications: Home Meds Acetaminophen/Diphenhydramine [Tylenol Pm Ex-Strength Caplet] 1 ea PO BEDTIME PRN 12/03/15 [History] Multivitamin with Minerals [Multiple Vitamin] 1 tab PO DAILY 09/09/17 [History] Acetaminophen 1,000 mg PO Q6H 06/16/20 [History] Amoxicillin 2,000 mg PO ASDIRECTED PRN 06/16/20 [History] Aspirin [Lo-Dose Aspirin EC] 81 mg PO BEDTIME 06/16/20 [History] Cholecalciferol (Vitamin D3) [Vitamin D3] 50 mcg PO DAILY 06/16/20 [History] Furosemide 20 mg PO DAILY 06/16/20 [History] Losartan [Cozaar] 25 mg PO DAILY 06/16/20 [History] Magnesium Chloride [Slow-Mag] 1 tab PO BID 06/16/20 [History] Phosphorus #1 [Virt-Phos 250 Neutral Tablet] 250 mg PO DAILY 06/16/20 [History] Sulfamethoxazole/Trimethoprim [Sulfamethoxazole-Tmp Ss Tablet] 1 tab PO DAILY 06/16/20 [History] Tacrolimus [Prograf] 0.5 mg PO BID 06/16/20 [History] Tacrolimus [Prograf] 1 mg PO BID 06/16/20 [History] atorvaSTATin [Lipitor] 10 mg PO MOWEFR@199906/16/20 [History] carvediloL [Carvedilol] 3.125 mg PO BID 06/16/20 [History] carvediloL [Carvedilol] 12.5 mg PO BID 06/16/20 [History] fluorouraciL [Efudex 5% Cream] 1 applic TOP BID PRN 06/16/20 [History] predniSONE 10 mg PO DAILY@0800 06/16/20 [History] Past Medical History HEENT History: Reports: Impaired Vision, Other (See Below) Other HEENT History: ACTINIC DERMATOSIS, MALIGNANT NEOPLASM OF EYELID, INCLUDING CANTHUS Cardiovascular History: Reports: Cardiomyopathy, Heart Failure, Hypertension, Other (See Below) Other Cardiovascular History: RUE AV FISTUAL ALONG THE FOREARM, HEALTHY AND FUNCTIONAL. HX OF DIALYSIS 2 YEARS PRIOR TO TRANSPLANTS. Respiratory History: Reports: Interstitial Lung Disease, Pulmonary Fibrosis, SOB Gastrointestinal History: Reports: GERD, Other (See Below) Other Gastrointestinal History: HYDROCELE Genitourinary History: Reports: Dialysis, Dialysis, Peritoneal, Prostate Disorder, Renal Disease, Other (See Below) Other Genitourinary History: home hemodialysis Neurological History: Reports: None Psychiatric History: Reports: None Endocrine/Metabolic History: Reports: Hyperparathyroidism Other Endocrine/Metabolic History: PARATHYROIDECTOMY R/T 2NDARY FROM RENAL DISEASE Hematologic History: Reports: Anemia, Blood Transfusion(s) Other Hematologic History: ANEMIA R/T KIDNEY DISEASE Immunologic History: Reports: None, Immunosuppression, Solid Organ Transplant Oncologic (Cancer) History: Reports: Prostate, Squamous Cell Carcinoma Dermatologic History: Reports: Other (See Below) Other Dermatologic History: HX ACTINIC KERATOSIS. ROSACIA, SEBACCIOUS CYSTS INTERMETTENTLY TO THE BACK. - Infectious Disease History Infectious Disease History: Reports: Chicken Pox, Measles, Mumps, Rubella, Shingles Other Infectious Disease History: shingles shot 2018 or 2019 - Past Surgical History HEENT Surgical History: Reports: Oral Surgery Other HEENT Surgeries/Procedures: PARATHYROIDECTOMY Cardiovascular Surgical History: Reports: Vascular Surgery (RIGHT UE FISTULA FOR DIALYSIS IF NEEDED.) Respiratory Surgical History: Reports: None GI Surgical History: Reports: Colonoscopy Male Surgical History: Reports: Prostate Biopsy, Prostatectomy, Vasectomy, Other (See Below) (RIGHT KIDNEY REPLACE X 3) Endocrine Surgical History: Reports: Parathyroidectomy Neurological Surgical History: Reports: None Musculoskeletal Surgical History: Reports: Hip Replacement, Other (See Below) - Past Imaging History Past Imaging History: Reports: Angiography, Cardiac Echo, EEG, MRI, Venous Doppler, Xray Social & Family History - Family History Family Medical History: No Pertinent Family History - Tobacco Use Tobacco Use Status *Q: Never Tobacco User - Caffeine Use Caffeine Use: Reports: None Other Caffeine Use: 1-2 cups per day - Recreational Drug Use Recreational Drug Use: No - Living Situation & Occupation Living situation: Reports: , with Spouse 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 Denies: Fever, Chills HEENT: Reports: No Symptoms Pulmonary: Reports: Shortness of Breath, Cough. Denies: Wheezing, Pleuritic Chest Pain Cardiovascular: Denies: Chest Pain, Palpitations, Edema, Lightheadedness Gastrointestinal: Reports: No Symptoms Genitourinary: Reports: Other (decreased frequency). Denies: Frequency, Burning, Pain Musculoskeletal: Reports: No Symptoms Skin: Reports: No Symptoms Psychiatric: Reports: No Symptoms Neurological: Reports: No Symptoms Exam - Exam Exam: See Below - Vital Signs Vital Signs: Last Vital Signs Temp 98.0 F 06/16/20 13:20 Pulse 62 06/16/20 13:20 Resp 20 06/16/20 13:20 BP 108/62 06/16/20 13:20 Pulse Ox 92 L 06/16/20 13:20 Weight: 233 lb 2 oz - Exam General: Alert, Oriented, Cooperative. No: Mild Distress HEENT: PERRLA, Conjunctiva Clear, EOMI, Hearing Intact, Mucosa Moist & [place] Neck: Trachea Midline Lungs: Clear to Auscultation, Normal Respiratory Effort, Decreased Breath Sounds (bibasilar), Crackles (bibasilar). No: Wheezing Cardiovascular: Regular Rate, Regular Rhythm, Systolic Murmur GI/Abdominal Exam: Normal Bowel Sounds, Soft, Non-Tender, No Distention (Male) Exam: Deferred Rectal (Males) Exam: Deferred Extremities: No Pedal Edema, Normal Capillary Refill, Other (AV fistula in right forearm) Peripheral Pulses: 2+: Radial (L), Radial (R) Skin: Warm, Dry, Intact - Patient Data Lab Results Last 24 hrs: Laboratory Results - last 24 hr 06/16/20 06/16/20 06/16/20 Range/Units 11:42 11:42 11:42 WBC 5.2 (3.2-10.1) x10-3/uL RBC 4.68 (3.90-5.90) x10(6)uL Hgb 12.9 (12.9-17.7) g/dL Hct 40.8 (38.3-50.1) % MCV 87.3 (80.8-98.7) fL MCH 27.7 (27.0-33.3) pg MCHC 31.7 (28.7-35.3) g/dL RDW 16.7 H (12.4-15.0) % Plt Count 87 L (117-477) x10(3)uL MPV 8.2 (6.7-11.0) fL Neut % (Auto) 74.9 H (40.3-71.8) % Lymph % (Auto) 19.4 (15.8-45.3) % Alexander % (Auto) 5.1 L (5.5-15.2) % Eos % (Auto) 0.3 (0.1-6.8) % Baso % (Auto) 0.3 (0.3-3.8) % Neut # (Auto) 3.9 (1.7-6.9) x10-3/uL Lymph # (Auto) 1.0 (0.5-4.5) x10-3/uL Alexander # (Auto) 0.3 (0.0-1.2) x10-3/uL Eos # (Auto) 0.0 (0.0-0.6) x10-3/uL Baso # (Auto) 0.0 (0.0-0.3) x10-3/uL Sodium 135 (135-145) mmol/L Potassium 4.2 (3.5-5.3) mmol/L Chloride 102 (100-110) mmol/L Carbon Dioxide 21 (21-32) mmol/L BUN 30 H (7-18) mg/dL Creatinine 2.0 H* (0.70-1.30) mg/dL Est Cr Clr Drug Dosing 44.53 mL/min Estimated GFR (MDRD) 34 L (>60) BUN/Creatinine Ratio 15.0 (9-20) Glucose 130 H (80-116) mg/dL Calcium 8.1 L (8.6-10.2) mg/dL Total Bilirubin 0.6 (0.1-1.3) mg/dL AST 23 D (5-25) IU/L ALT 17 D (12-36) U/L Alkaline Phosphatase 60 (56-112) IU/L Troponin I 37.9 (4.0-60.3) pg/mL NT-Pro-B Natriuret Pep 2523 H* (<=125) pg/mL Total Protein 6.0 (6.0-8.0) g/dL Albumin 3.0 L (3.2-4.6) g/dL Globulin 3.0 g/dL Albumin/Globulin Ratio 1.0 Result Diagrams: 06/16/20 11:42 06/16/20 11:42 Sepsis Event Note - Evaluation Sepsis Screening Result: No Definite Risk - Focused Exam Vital Signs: Vital Signs Temp Pulse Pulse Resp BP Pulse Ox Pulse Ox 06/16/20 13:20 98.0 F 62 20 108/62 92 L 06/16/20 12:56 62 18 106/68 97 06/16/20 11:15 95 06/16/20 11:05 98.7 F 65 20 109/60 95 *Q Meaningful Use (ADM) - VTE *Q VTE Anticoagulation Contraindications: Medical/Procedure Contrai - Problem List (1) BRANDON (acute kidney injury) SNOMED Code(s): 23870602, 58536833 ICD Code: N17.9 - ACUTE KIDNEY FAILURE, UNSPECIFIED Status: Acute Current Visit: Yes (2) Viral pneumonia SNOMED Code(s): 24026557 ICD Code: J12.9 - VIRAL PNEUMONIA, UNSPECIFIED Status: Acute Current Visit: Yes (3) COVID-19 SNOMED Code(s): 102391193 ICD Code: U07.1 - COVID-19 Status: Acute Current Visit: Yes (4) Dehydration SNOMED Code(s): 70800521 ICD Code: E86.0 - DEHYDRATION Status: Acute Current Visit: Yes (5) Anemia of renal disease SNOMED Code(s): 329975865 ICD Code: D63.1 - ANEMIA IN CHRONIC KIDNEY DISEASE Status: Chronic Priority: Medium Current Visit: No Problem Details: hgb 7.4, aranesp today. (6) Drug-induced immune thrombocytopenia SNOMED Code(s): 07020513 ICD Code: D69.59 - OTHER SECONDARY THROMBOCYTOPENIA; T50.905A - ADVERSE EFFECT OF UNSP DRUG/MEDS/BIOL SUBST, INIT Status: Chronic Current Visit: No (7) Renovascular hypertension SNOMED Code(s): 746242802 ICD Code: I15.0 - RENOVASCULAR HYPERTENSION Status: Chronic Priority: High Current Visit: No (8) Transplant of kidney SNOMED Code(s): 800943765 ICD Code: Z94.0 - KIDNEY TRANSPLANT STATUS Status: Chronic Current Visit: No Problem Details: Continue transplant antirejection meds. (9) Adenocarcinoma of prostate SNOMED Code(s): 681160194 ICD Code: C61 - MALIGNANT NEOPLASM OF PROSTATE Status: Chronic Priority: High Current Visit: No Problem Details: 07/2013 Problem List Initiated/Reviewed/Updated: Yes Orders Last 24hrs: Active Orders 24 hr Category Date Time Status Patient Status [ADT] Routine ADT 06/16/20 14:05 Active Nurse Communication: Isolation [RC] ASDIRECTED Care 06/16/20 13:49 Active Oxygen Therapy [RC] ASDIRECTED Care 06/16/20 11:37 Active Positioning, Patient [RC] ASDIRECTED Care 06/16/20 13:49 Active RT Incentive Spirometry [RC] ASDIRECTED Care 06/16/20 13:49 Active Up ad Elizabeth [RC] ASDIRECTED Care 06/16/20 14:05 Active VTE/DVT Education [RC] Per Unit Routine Care 06/16/20 14:05 Active Vital Signs [RC] Q4H Care 06/16/20 14:05 Active Regular Diet [DIET] Diet 06/16/20 Lunch Active BASIC METABOLIC PANEL,BMP [CHEM] Routine Lab 06/17/20 06:00 Ordered CBC WITH AUTO DIFF [HEME] Routine Lab 06/17/20 06:00 Ordered HEPATIC FUNCTION PANEL,HFP [CHEM] Routine Lab 06/17/20 06:00 Ordered PROCALCITONIN Stat Lab 06/16/20 13:49 Ordered Acetaminophen [TylenoL] Med 06/16/20 13:49 Ordered 650 mg PO Q4H PRN Ondansetron [Zofran ODT] Med 06/16/20 14:05 Ordered 4 mg PO Q6H PRN Sodium Chloride 0.9% [Normal Saline] 1,000 ml Med 06/16/20 11:45 Active IV ASDIRECTED Sodium Chloride 0.9% [Saline Flush] Med 06/16/20 11:35 Active 10 ml FLUSH ASDIRECTED PRN Anticoagulation Contraindications VTE [AST] Per Unit Oth 06/16/20 14:05 Ordered Routine Antiembolic Hose [OM.PC] Per Unit Routine Oth 06/16/20 14:06 Ordered Isolation [COMM] Stat Oth 06/16/20 13:49 Ordered Saline Lock Insert [OM.PC] Routine Oth 06/16/20 11:35 Ordered Resuscitation Status Routine Resus Stat 06/16/20 14:05 Ordered Medication Orders Acetaminophen (Tylenol) 650 mg PO Q4H PRN PRN Reason: Fever Greater Than 101 Sodium Chloride (Normal Saline) 1,000 mls @ 125 mls/hr IV ASDIRECTED RICKIE Last Admin: 06/16/20 12:06 Dose: 250 mls/hr Documented by: REGINA Ondansetron HCl (Zofran Odt) 4 mg PO Q6H PRN PRN Reason: nausea, able to take PO Sodium Chloride (Saline Flush) 10 ml FLUSH ASDIRECTED PRN PRN Reason: Keep Vein Open Assessment/Plan Comment:: 1. Admit for Acute Kidney injury, Viral pneumonia, COVID-19, Dehydration 2. COVID-19: not requiring oxygen at this time, continue to monitor and if requires oxygen then would start Dexamethasone 6 mg IV daily. Incentive spirometry q1WA. Procalcitonin pending. Repeat labs tomorrow. 3. BRANDON/Dehydration: NS at 125 ml/hr, repeat chemistry tomorrow. 4. Regular diet. 5. DVT prophylaxis: TEDs BLE, Lovenox contraindicated due to chronic thrombocytopenia. 6. CODE STATUS: FULL. Continue home medications. - Mortality Measure Prognosis:: Good
[2020-06-16] MEDS ORDERED: FLUOROURACIL TOP PRN (14:44)
[2020-06-16] MEDS: atorvaSTATin 10 MG Tab PO SCH (20:09)
[2020-06-16] MEDS: Carvedilol 12.5 MG Tab PO SCH (20:09)
[2020-06-16] MEDS: Tacrolimus 0.5 MG Cap PO SCH (20:10)
[2020-06-16] MEDS: Aspirin 81 MG Tab.EC PO SCH (20:10)
[2020-06-16] MEDS: Tacrolimus 1 MG Cap PO SCH (20:10)
[2020-06-16] MEDS: Carvedilol 3.125 MG Tab PO SCH (20:10)
[2020-06-16] MEDS: MAGNESIUM CHLORIDE PO SCH (20:10)
[2020-06-16] MEDS: Acetaminophen/Diphenhydramine 500-25 MG Tab PO PRN (22:58)
[2020-06-16] MEDS ORDERED: Acetaminophen 500 MG Tab PO ONE (23:08)
[2020-06-17] MEDS: Sodium Chloride 0.9% 1,000 ML IV SCH ×2 (05:00→15:51)
[2020-06-17] MEDS ORDERED: Losartan 25 MG Tab PO SCH (08:00)
[2020-06-17] MEDS ORDERED: predniSONE 5 MG Tab PO SCH (08:00)
[2020-06-17] MEDS ORDERED: Furosemide 20 MG Tab PO SCH (08:00)
[2020-06-17] MEDS: Sulfamethoxazole/Trimethoprim 400-80 MG Tab PO SCH (08:15)
[2020-06-17] MEDS: Phosphorus #1 250 MG Tab PO SCH (08:15)
[2020-06-17] MEDS: Carvedilol 12.5 MG Tab PO SCH ×2 (08:16→20:19)
[2020-06-17] MEDS: Cholecalciferol (Vitamin D3) 25 MCG Tab PO SCH (08:16)
[2020-06-17] MEDS: Carvedilol 3.125 MG Tab PO SCH ×2 (08:16→20:20)
[2020-06-17] MEDS: Tacrolimus 0.5 MG Cap PO SCH ×2 (08:16→20:18)
[2020-06-17] MEDS: Multivitamin Tab PO SCH (08:16)
[2020-06-17] MEDS: MAGNESIUM CHLORIDE PO SCH ×2 (08:17→20:18)
[2020-06-17] MEDS: Tacrolimus 1 MG Cap PO SCH ×2 (08:17→20:20)
[2020-06-17] MEDS ORDERED: REMDESIVIR 200 MG in Sodium Chloride 0.9% 250 ML IV ONE (10:00)
[2020-06-17] MEDS: Dexamethasone 4 MG/ML 5 ML MDV IVPUSH SCH (10:35)
[2020-06-17] MEDS: Sodium Chloride 0.9% 10 ML Syringe FLUSH PRN ×3 (12:11→12:13)
--- NOTE | 2020-06-17 13:40 | PCM.PN ---
- General Info Date of Service: 06/17/20 Subjective Update: Marcos was worried bout fluid overload last night so asked for IV fluids to be stopped and drank 2 L overnight, he requested fluids be restarted this morning. He has spike a temp last night 101.9F around midnight, he also desaturated then down to 80%, was placed on oxygen by nasal cannula at 5L, came up to low 90s, had another desaturation early am of 88%, he is now at 93% on 4L. He denies any pain, no chest pain. No diarrhea or vomiting. Has urinated 350 ml overnight/this morning. He slept on his left side so his eyelid is swollen on that side. He had a skin cancer removed from that eyelid and states it swells if he lays on that side. He is flushed this morning, warm to touch but afebrile. His [place] transplant team 2 was notified of his admission this morning. - Patient Data Vitals - Most Recent: Last Vital Signs Temp 98.9 F 06/17/20 10:41 Pulse 70 06/17/20 10:41 Resp 19 06/17/20 10:41 BP 122/70 06/17/20 10:41 Pulse Ox 94 L 06/17/20 10:41 Weight - Most Recent: 233 lb 2 oz I&O - Last 24 Hours: Intake & Output 06/16/20 06/17/20 06/17/20 22:59 06:59 14:59 Intake Total 2856 210 Output Total 250 350 Balance 2606 -140 Lab Results Last 24 Hours: Laboratory Results - last 24 hr 06/17/20 06/17/20 06/17/20 Range/Units 02:50 06:40 06:40 WBC 4.5 (3.2-10.1) x10-3/uL RBC 4.26 (3.90-5.90) x10(6)uL Hgb 11.8 L (12.9-17.7) g/dL Hct 36.8 L (38.3-50.1) % MCV 86.3 (80.8-98.7) fL MCH 27.8 (27.0-33.3) pg MCHC 32.2 (28.7-35.3) g/dL RDW 16.7 H (12.4-15.0) % Plt Count 89 L (117-477) x10(3)uL MPV 8.2 (6.7-11.0) fL Neut % (Auto) 67.3 (40.3-71.8) % Lymph % (Auto) 27.3 (15.8-45.3) % [place] % (Auto) 5.3 L (5.5-15.2) % Eos % (Auto) 0.1 (0.1-6.8) % Baso % (Auto) 0.0 L (0.3-3.8) % Neut # (Auto) 3.0 (1.7-6.9) x10-3/uL Lymph # (Auto) 1.2 (0.5-4.5) x10-3/uL [place] # (Auto) 0.2 (0.0-1.2) x10-3/uL Eos # (Auto) 0.0 (0.0-0.6) x10-3/uL Baso # (Auto) 0.0 (0.0-0.3) x10-3/uL Sodium 135 (135-145) mmol/L Potassium 4.4 (3.5-5.3) mmol/L Chloride 104 (100-110) mmol/L Carbon Dioxide 19 L (21-32) mmol/L BUN 28 H (7-18) mg/dL Creatinine 1.8 H (0.70-1.30) mg/dL Est Cr Clr Drug Dosing 49.47 mL/min Estimated GFR (MDRD) 38 L (>60) BUN/Creatinine Ratio 15.6 (9-20) Glucose 88 (80-116) mg/dL Calcium 7.6 L (8.6-10.2) mg/dL Total Bilirubin 0.5 (0.1-1.3) mg/dL Direct Bilirubin 0.14 (0.10-0.20) mg/dL AST 25 (5-25) IU/L ALT 14 D (12-36) U/L Alkaline Phosphatase 52 L (56-112) IU/L Total Protein 5.2 L (6.0-8.0) g/dL Albumin 2.5 L (3.2-4.6) g/dL Urine Color Yellow (YELLOW) Urine Appearance Clear (CLEAR) Urine pH 5.0 (5.0-6.5) Ur Specific [place] 1.015 (1.010-1.025) Urine Protein Trace (NEGATIVE) mg/dL Urine Glucose (UA) Normal (NORMAL) mg/dL Urine Ketones 15 H (NEGATIVE) mg/dL Urine Occult Blood Negative (NEGATIVE) Urine Nitrite Negative (NEGATIVE) Urine Bilirubin Negative (NEGATIVE) Urine Urobilinogen Normal (NEGATIVE) mg/dL Ur Leukocyte Esterase Negative (NEGATIVE) Urine RBC 0-5 (0-5) Urine WBC 0-5 (0-5) Ur Squamous Epith Cells Few H (NS,R,O) Amorphous Sediment Few Urine Bacteria Few H (NS) Urine Mucus Few H (NS) Med Orders - Current: Current Medications Acetaminophen (Tylenol) 650 mg PO Q4H PRN PRN Reason: Fever Greater Than 101 Last Admin: 06/16/20 14:50 Dose: 650 mg Documented by: Acetaminophen/Diphenhydramine HCl (Tylenol Pm Extra Strength) 1 tab PO BEDTIME PRN PRN Reason: Insomnia Last Admin: 06/16/20 22:58 Dose: 1 tab Documented by: Aspirin (Halfprin) 81 mg PO DAILY@1999 [facility] Last Admin: 06/16/20 20:10 Dose: 81 mg Documented by: Atorvastatin Calcium (Lipitor) 10 mg PO MOWEFR@1999 [facility] Last Admin: 06/16/20 20:09 Dose: 10 mg Documented by: Carvedilol (Coreg) 3.125 mg PO BID@ [facility] Last Admin: 06/17/20 08:16 Dose: 3.125 mg Documented by: Carvedilol (Coreg) 12.5 mg PO BID@ [facility] Last Admin: 06/17/20 08:16 Dose: 12.5 mg Documented by: Cholecalciferol (Vitamin D3) 50 mcg PO DAILY@08 [facility] Last Admin: 06/17/20 08:16 Dose: 50 mcg Documented by: Dexamethasone (Dexamethasone) 6 mg IVPUSH DAILY [facility] Stop: 06/27/20 09:01 Last Admin: 06/17/20 10:35 Dose: 6 mg Documented by: Sodium Chloride (Normal Saline) 1,000 mls @ 75 mls/hr IV ASDIRECTED [facility] Last Infusion: 06/17/20 09:25 Dose: 75 mls/hr Documented by: Remdesivir 100 mg/ Sodium (Chloride) 100 mls @ 100 mls/hr IV Q24H [facility] Stop: 06/21/20 09:59 Multivitamins/Minerals/Vitamin C (Tab-A-Jeannette) 1 tab PO DAILY@0800 [facility] Last Admin: 06/17/20 08:16 Dose: 1 tab Documented by: Non-Formulary Medication 1 Each ( Magnesium Chloride [ Slow-Mag] 1 Tab) * Ptom* 1 tab PO BID@ [facility] Last Admin: 06/17/20 08:17 Dose: 1 tab Documented by: Ondansetron HCl (Zofran Odt) 4 mg PO Q6H PRN PRN Reason: nausea, able to take PO Prednisone (Prednisone) 10 mg PO DAILY@0800 [facility] Last Admin: 06/17/20 08:17 Dose: 10 mg Documented by: Sodium Chloride (Saline Flush) 10 ml FLUSH ASDIRECTED PRN PRN Reason: Keep Vein Open Sodium Phosphate (Neutra-Phos) 250 mg PO DAILY@0800 [facility] Last Admin: 06/17/20 08:15 Dose: 250 mg Documented by: Tacrolimus (Prograf) 0.5 mg PO BID@ [facility] Last Admin: 06/17/20 08:16 Dose: 0.5 mg Documented by: Tacrolimus (Prograf) 1 mg PO BID@ [facility] Last Admin: 06/17/20 08:17 Dose: 1 mg Documented by: Trimethoprim/Sulfamethoxazole (Septra) 1 tab PO DAILY@0800 [facility] Last Admin: 06/17/20 08:15 Dose: 1 tab Documented by: Discontinued Medications Acetaminophen (Tylenol Extra Strength) 500 mg PO ONETIME ONE Stop: 06/16/20 23:09 Last Admin: 06/16/20 23:16 Dose: 500 mg Documented by: Dexamethasone (Decadron) 6 mg IVPUSH DAILY [facility] Stop: 06/25/20 09:01 Last Admin: 06/16/20 15:09 Dose: Not Given Documented by: Furosemide (Lasix) 20 mg PO DAILY@0800 [facility] Last Admin: 06/17/20 08:17 Dose: 20 mg Documented by: Remdesivir 200 mg/ Sodium (Chloride) 250 mls @ 200 mls/hr IV ONETIME ONE Stop: 06/17/20 11:14 Last Admin: 06/17/20 10:38 Dose: 200 mls/hr Documented by: Losartan Potassium (Cozaar) 25 mg PO DAILY@0800 [facility] Last Admin: 06/17/20 08:16 Dose: 25 mg Documented by: - Exam Quality Assessment: Supplemental Oxygen (at 4L ) General: Alert, Oriented, Cooperative, No Acute Distress Lungs: Clear to Auscultation, Normal Respiratory Effort, Decreased Breath Sounds (bibasilar), Crackles (rare crackles on RLL). No: Wheezing Cardiovascular: Regular Rate, Regular Rhythm, Murmurs GI/Abdominal Exam: Soft, Non-Tender, No Distention, Abnormal Bowel Sounds (hyperactive) Extremities: No Pedal Edema, Normal Capillary Refill Sepsis Event Note - Evaluation Sepsis Screening Result: No Definite Risk - Focused Exam Vital Signs: Vital Signs Temp Pulse Pulse Resp BP BP Pulse Ox 06/17/20 10:41 98.9 F 70 19 122/70 94 L 06/17/20 08:16 70 119/65 06/17/20 08:00 98.9 F 70 19 119/65 94 L 06/17/20 04:55 72 24 H 93 L 06/17/20 04:16 91 L 06/17/20 04:15 98.8 F 72 36 H 88 L 06/17/20 03:26 100.2 F 78 20 126/79 93 L - Problem List & Annotations (1) BRANDON (acute kidney injury) SNOMED Code(s): 98935607, 36826590 Code(s): N17.9 - ACUTE KIDNEY FAILURE, UNSPECIFIED Status: Acute Current Visit: Yes (2) Viral pneumonia SNOMED Code(s): 37427969 Code(s): J12.9 - VIRAL PNEUMONIA, UNSPECIFIED Status: Acute Current Visit: Yes (3) COVID-19 SNOMED Code(s): 714744908 Code(s): U07.1 - COVID-19 Status: Acute Current Visit: Yes (4) Dehydration SNOMED Code(s): 99094938 Code(s): E86.0 - DEHYDRATION Status: Acute Current Visit: Yes (5) Anemia of renal disease SNOMED Code(s): 045193111 Code(s): D63.1 - ANEMIA IN CHRONIC KIDNEY DISEASE Status: Chronic Priority: Medium Current Visit: No Annotation/Comment:: hgb 7.4, aranesp today. (6) Drug-induced immune thrombocytopenia SNOMED Code(s): 37177073 Code(s): D69.59 - OTHER SECONDARY THROMBOCYTOPENIA; T50.905A - ADVERSE EFFECT OF UNSP DRUG/MEDS/BIOL SUBST, INIT Status: Chronic Current Visit: No (7) Renovascular hypertension SNOMED Code(s): 521335178 Code(s): I15.0 - RENOVASCULAR HYPERTENSION Status: Chronic Priority: High Current Visit: No (8) Transplant of kidney SNOMED Code(s): 245716134 Code(s): Z94.0 - KIDNEY TRANSPLANT STATUS Status: Chronic Current Visit: No Annotation/Comment:: Continue transplant antirejection meds. (9) Adenocarcinoma of prostate SNOMED Code(s): 291305564 Code(s): C61 - MALIGNANT NEOPLASM OF PROSTATE Status: Chronic Priority: High Current Visit: No Annotation/Comment:: 07/2013 - Problem List Review Problem List Initiated/Reviewed/Updated: Yes - My Orders Last 24 Hours: My Active Orders 06/16/20 13:49 Nurse Communication: Isolation [RC] ASDIRECTED RT Incentive Spirometry [RC] ASDIRECTED Acetaminophen [TylenoL] 650 mg PO Q4H PRN Isolation [COMM] Stat 06/16/20 14:05 Patient Status [ADT] Routine Up ad Elziabeth [RC] ASDIRECTED VTE/DVT Education [RC] Per Unit Routine Vital Signs [RC] 08,12,16,20,00,04 Ondansetron [Zofran ODT] 4 mg PO Q6H PRN Anticoagulation Contraindications VTE [AST] Per Unit Routine Resuscitation Status Routine 06/16/20 14:06 Antiembolic Hose [OM.PC] Per Unit Routine 06/16/20 14:44 Acetaminophen/Diphenhydramine [Tylenol PM Extra Strength] 1 tab PO BEDTIME PRN 06/16/20 20:00 Aspirin [Halfprin] 81 mg PO DAILY@1999 Magnesium Chloride [Slow-Mag] 1 tab PO BID@799,1999 Tacrolimus [Prograf] 0.5 mg PO BID@799,1999 Tacrolimus [Prograf] 1 mg PO BID@799,1999 atorvaSTATin [Lipitor] 10 mg PO MOWEFR@1999 carvediloL [Coreg] 12.5 mg PO BID@799,1999 carvediloL [Coreg] 3.125 mg PO BID@0800,199906/17/20 08:00 Cholecalciferol (Vitamin D3) [Vitamin D3] 50 mcg PO DAILY@0800 Multivitamins [Tab-A-Jeannette] 1 tab PO DAILY@0800 Phosphorus #1 [Neutra-Phos] 250 mg PO DAILY@0800 Sulfamethoxazole/Trimethoprim [Septra] 1 tab PO DAILY@0800 predniSONE 10 mg PO DAILY@0800 06/17/20 09:00 dexAMETHasone 6 mg IVPUSH DAILY 06/18/20 05:00 TACROLIMUS BY IMMUNOASSAY Routine 06/18/20 06:00 CBC WITH AUTO DIFF [HEME] DAILY COMPREHENSIVE METABOLIC PN,CMP [CHEM] DAILY 06/18/20 09:00 Remdesivir 100 mg Sodium Chloride 0.9% [Normal Saline] 100 ml IV Q24H 06/19/20 06:00 CBC WITH AUTO DIFF [HEME] DAILY COMPREHENSIVE METABOLIC PN,CMP [CHEM] DAILY 06/20/20 06:00 CBC WITH AUTO DIFF [HEME] DAILY COMPREHENSIVE METABOLIC PN,CMP [CHEM] DAILY 06/21/20 06:00 CBC WITH AUTO DIFF [HEME] DAILY COMPREHENSIVE METABOLIC PN,CMP [CHEM] DAILY 06/22/20 06:00 CBC WITH AUTO DIFF [HEME] DAILY COMPREHENSIVE METABOLIC PN,CMP [CHEM] DAILY - Plan Plan:: 1. COVID-19: Requiring oxygen at this time, His transplant team was in agreement with starting Dexamethasone 6 mg IV daily, hold his prednisone. Start Remdesivir 200 mg loading dose and start 100 mg IV daily tomorrow, 5 day course. Incentive spirometry q1WA. Procalcitonin pending. Repeat labs tomorrow. 2. BRANDON/Dehydration: NS at 75 ml/hr, oral intake improving. Transplant recommended holding his Losartan & Lasix until his kidney function return to baseline(Cr 1.5). Repeat chemistry tomorrow. 3. Regular diet. 4. DVT prophylaxis: TEDs BLE, Lovenox contraindicated due to chronic thrombocytopenia.
[2020-06-17] MEDS: Aspirin 81 MG Tab.EC PO SCH (20:19)
[2020-06-17] MEDS: Acetaminophen/Diphenhydramine 500-25 MG Tab PO PRN (20:52)
[2020-06-18] MEDS: Sodium Chloride 0.9% 1,000 ML IV SCH (04:25)
[2020-06-18] MEDS: Carvedilol 12.5 MG Tab PO SCH ×2 (08:35→20:04)
[2020-06-18] MEDS: MAGNESIUM CHLORIDE PO SCH ×2 (08:35→19:56)
[2020-06-18] MEDS: Carvedilol 3.125 MG Tab PO SCH ×2 (08:35→20:04)
[2020-06-18] MEDS: Phosphorus #1 250 MG Tab PO SCH (08:36)
[2020-06-18] MEDS: Cholecalciferol (Vitamin D3) 25 MCG Tab PO SCH (08:36)
[2020-06-18] MEDS: Tacrolimus 1 MG Cap PO SCH ×2 (08:36→19:57)
[2020-06-18] MEDS: Sulfamethoxazole/Trimethoprim 400-80 MG Tab PO SCH (08:36)
[2020-06-18] MEDS: Multivitamin Tab PO SCH (08:36)
[2020-06-18] MEDS: Tacrolimus 0.5 MG Cap PO SCH ×2 (08:36→19:57)
[2020-06-18] MEDS: Dexamethasone 4 MG/ML 5 ML MDV IVPUSH SCH (08:37)
[2020-06-18] MEDS: REMDESIVIR 100 MG in Sodium Chloride 0.9% 100 ML IV SCH (09:55)
[2020-06-18] MEDS: Sodium Chloride 0.9% 10 ML Syringe FLUSH PRN ×3 (10:56→10:58)
--- NOTE | 2020-06-18 11:12 | PCM.PN ---
- General Info Date of Service: 06/18/20 Subjective Update: Marcos is feeling better this morning, had some diarrhea overnight. Does not feel his fluid overloaded, usually has edema in his ankles and abdomen. No nausea or vomiting. Breathing better, using incentive spirometry. Urinating improving. - Patient Data Vitals - Most Recent: Last Vital Signs Temp 97.6 F 06/18/20 08:00 Pulse 62 06/18/20 08:35 Resp 20 06/18/20 08:00 BP 154/80 H 06/18/20 08:35 Pulse Ox 96 06/18/20 08:00 Weight - Most Recent: 234 lb 2 oz I&O - Last 24 Hours: Intake & Output 06/17/20 06/18/20 06/18/20 22:59 06:59 14:59 Intake Total 1388 658 Output Total 200 650 Balance 1188 8 Lab Results Last 24 Hours: Laboratory Results - last 24 hr 06/18/20 06/18/20 Range/Units 06:20 06:20 WBC 2.6 L (3.2-10.1) x10-3/uL RBC 4.35 (3.90-5.90) x10(6)uL Hgb 12.0 L (12.9-17.7) g/dL Hct 37.7 L (38.3-50.1) % MCV 86.7 (80.8-98.7) fL MCH 27.6 (27.0-33.3) pg MCHC 31.8 (28.7-35.3) g/dL RDW 17.2 H (12.4-15.0) % Plt Count 93 L (117-477) x10(3)uL MPV 7.7 (6.7-11.0) fL Neut % (Auto) 72.7 H (40.3-71.8) % Lymph % (Auto) 20.9 (15.8-45.3) % [place] % (Auto) 6.3 (5.5-15.2) % Eos % (Auto) 0.0 L (0.1-6.8) % Baso % (Auto) 0.1 L (0.3-3.8) % Neut # (Auto) 1.9 (1.7-6.9) x10-3/uL Lymph # (Auto) 0.5 (0.5-4.5) x10-3/uL [place] # (Auto) 0.2 (0.0-1.2) x10-3/uL Eos # (Auto) 0.0 (0.0-0.6) x10-3/uL Baso # (Auto) 0.0 (0.0-0.3) x10-3/uL Sodium 138 (135-145) mmol/L Potassium 4.5 (3.5-5.3) mmol/L Chloride 107 (100-110) mmol/L Carbon Dioxide 19 L (21-32) mmol/L BUN 31 H (7-18) mg/dL Creatinine 1.7 H (0.70-1.30) mg/dL Est Cr Clr Drug Dosing 52.38 mL/min Estimated GFR (MDRD) 41 L (>60) BUN/Creatinine Ratio 18.2 (9-20) Glucose 127 H (80-116) mg/dL Calcium 7.9 L (8.6-10.2) mg/dL Total Bilirubin 0.4 (0.1-1.3) mg/dL AST 29 H D (5-25) IU/L ALT 18 D (12-36) U/L Alkaline Phosphatase 54 L (56-112) IU/L Total Protein 5.3 L (6.0-8.0) g/dL Albumin 2.4 L (3.2-4.6) g/dL Globulin 2.9 g/dL Albumin/Globulin Ratio 0.8 Med Orders - Current: Current Medications Acetaminophen (Tylenol) 650 mg PO Q4H PRN PRN Reason: Fever Greater Than 101 Last Admin: 06/16/20 14:50 Dose: 650 mg Documented by: Acetaminophen/Diphenhydramine HCl (Tylenol Pm Extra Strength) 1 tab PO BEDTIME PRN PRN Reason: Insomnia Last Admin: 06/17/20 20:52 Dose: 1 tab Documented by: Aspirin (Halfprin) 81 mg PO DAILY@1999 [facility] Last Admin: 06/17/20 20:19 Dose: 81 mg Documented by: Atorvastatin Calcium (Lipitor) 10 mg PO MOWEFR@1999 [facility] Last Admin: 06/16/20 20:09 Dose: 10 mg Documented by: Carvedilol (Coreg) 3.125 mg PO BID@ [facility] Last Admin: 06/18/20 08:35 Dose: 3.125 mg Documented by: Carvedilol (Coreg) 12.5 mg PO BID@ [facility] Last Admin: 06/18/20 08:35 Dose: 12.5 mg Documented by: Cholecalciferol (Vitamin D3) 50 mcg PO DAILY@0800 [facility] Last Admin: 06/18/20 08:36 Dose: 50 mcg Documented by: Dexamethasone (Dexamethasone) 6 mg IVPUSH DAILY [facility] Stop: 06/27/20 09:01 Last Admin: 06/18/20 08:37 Dose: 6 mg Documented by: Sodium Chloride (Normal Saline) 1,000 mls @ 75 mls/hr IV ASDIRECTED [facility] Last Admin: 06/18/20 04:25 Dose: 75 mls/hr Documented by: Remdesivir 100 mg/ Sodium (Chloride) 100 mls @ 100 mls/hr IV Q24H [facility] Stop: 06/21/20 09:59 Last Admin: 06/18/20 09:55 Dose: 100 mls/hr Documented by: Multivitamins/Minerals/Vitamin C (Tab-A-Jeannette) 1 tab PO DAILY@08 [facility] Last Admin: 06/18/20 08:36 Dose: 1 tab Documented by: Non-Formulary Medication 1 Each ( Magnesium Chloride [ Slow-Mag] 1 Tab) * Ptom* 1 tab PO BID@ [facility] Last Admin: 06/18/20 08:35 Dose: 1 tab Documented by: Ondansetron HCl (Zofran Odt) 4 mg PO Q6H PRN PRN Reason: nausea, able to take PO Prednisone (Prednisone) 10 mg PO DAILY@08 [facility] Last Admin: 06/17/20 08:17 Dose: 10 mg Documented by: Sodium Chloride (Saline Flush) 10 ml FLUSH ASDIRECTED PRN PRN Reason: Keep Vein Open Last Admin: 06/17/20 12:13 Dose: 10 ml Documented by: Sodium Phosphate (Neutra-Phos) 250 mg PO DAILY@0800 [facility] Last Admin: 06/18/20 08:36 Dose: 250 mg Documented by: Tacrolimus (Prograf) 0.5 mg PO BID@ [facility] Last Admin: 06/18/20 08:36 Dose: 0.5 mg Documented by: Tacrolimus (Prograf) 1 mg PO BID@0800,1999 [facility] Last Admin: 06/18/20 08:36 Dose: 1 mg Documented by: Trimethoprim/Sulfamethoxazole (Septra) 1 tab PO DAILY@0800 [facility] Last Admin: 06/18/20 08:36 Dose: 1 tab Documented by: Discontinued Medications Acetaminophen (Tylenol Extra Strength) 500 mg PO ONETIME ONE Stop: 06/16/20 23:09 Last Admin: 06/16/20 23:16 Dose: 500 mg Documented by: Dexamethasone (Decadron) 6 mg IVPUSH DAILY [facility] Stop: 06/25/20 09:01 Last Admin: 06/16/20 15:09 Dose: Not Given Documented by: Furosemide (Lasix) 20 mg PO DAILY@0800 [facility] Last Admin: 06/17/20 08:17 Dose: 20 mg Documented by: Remdesivir 200 mg/ Sodium (Chloride) 250 mls @ 200 mls/hr IV ONETIME ONE Stop: 06/17/20 11:14 Last Admin: 06/17/20 10:38 Dose: 200 mls/hr Documented by: Losartan Potassium (Cozaar) 25 mg PO DAILY@0800 [facility] Last Admin: 06/17/20 08:16 Dose: 25 mg Documented by: - Exam General: Alert, Oriented, Cooperative, No Acute Distress Lungs: Clear to Auscultation, Normal Respiratory Effort, Decreased Breath Sounds (bibasilar), Crackles (fine crackles bibasilar). No: Wheezing Cardiovascular: Regular Rate, Regular Rhythm, Murmurs GI/Abdominal Exam: Soft, Non-Tender, No Distention, Abnormal Bowel Sounds (hyperactive) Extremities: No Pedal Edema Sepsis Event Note - Evaluation Sepsis Screening Result: No Definite Risk - Focused Exam Vital Signs: Vital Signs Temp Temp Pulse Pulse Resp BP BP 06/18/20 08:35 62 154/80 H 06/18/20 08:00 97.6 F 62 20 154/80 H 06/18/20 05:30 96.6 F L 56 L 22 H 152/92 H 06/18/20 01:00 97.5 F 56 L 20 145/72 H 06/18/20 00:00 Pulse Ox Pulse Ox 06/18/20 08:35 06/18/20 08:00 96 06/18/20 05:30 90 L 06/18/20 01:00 93 L 06/18/20 00:00 93 L - Problem List & Annotations (1) BRANDON (acute kidney injury) SNOMED Code(s): 36393331, 78684161 Code(s): N17.9 - ACUTE KIDNEY FAILURE, UNSPECIFIED Status: Acute Current Visit: Yes Annotation/Comment:: Improving 1.7, Tacrolimus level pending. (2) Viral pneumonia SNOMED Code(s): 59029204 Code(s): J12.9 - VIRAL PNEUMONIA, UNSPECIFIED Status: Acute Current Visit: Yes (3) COVID-19 SNOMED Code(s): 181013448 Code(s): U07.1 - COVID-19 Status: Acute Current Visit: Yes (4) Dehydration SNOMED Code(s): 84787140 Code(s): E86.0 - DEHYDRATION Status: Acute Current Visit: Yes (5) Anemia of renal disease SNOMED Code(s): 695818646 Code(s): D63.1 - ANEMIA IN CHRONIC KIDNEY DISEASE Status: Chronic Priority: Medium Current Visit: No Annotation/Comment:: hgb 7.4, aranesp today. (6) Drug-induced immune thrombocytopenia SNOMED Code(s): 88362133 Code(s): D69.59 - OTHER SECONDARY THROMBOCYTOPENIA; T50.905A - ADVERSE EFFECT OF UNSP DRUG/MEDS/BIOL SUBST, INIT Status: Chronic Current Visit: No (7) Renovascular hypertension SNOMED Code(s): 638234734 Code(s): I15.0 - RENOVASCULAR HYPERTENSION Status: Chronic Priority: High Current Visit: No (8) Transplant of kidney SNOMED Code(s): 690328726 Code(s): Z94.0 - KIDNEY TRANSPLANT STATUS Status: Chronic Current Visit: No Annotation/Comment:: Continue transplant antirejection meds. (9) Adenocarcinoma of prostate SNOMED Code(s): 753481191 Code(s): C61 - MALIGNANT NEOPLASM OF PROSTATE Status: Chronic Priority: High Current Visit: No Annotation/Comment:: 07/2013 - Problem List Review Problem List Initiated/Reviewed/Updated: Yes - My Orders Last 24 Hours: My Active Orders 06/18/20 05:00 TACROLIMUS BY IMMUNOASSAY Routine 06/18/20 09:00 Remdesivir 100 mg Sodium Chloride 0.9% [Normal Saline] 100 ml IV Q24H 06/18/20 09:25 STOOL CULTURE Routine 06/19/20 06:00 CBC WITH AUTO DIFF [HEME] DAILY COMPREHENSIVE METABOLIC PN,CMP [CHEM] DAILY 06/20/20 06:00 CBC WITH AUTO DIFF [HEME] DAILY COMPREHENSIVE METABOLIC PN,CMP [CHEM] DAILY 06/21/20 06:00 CBC WITH AUTO DIFF [HEME] DAILY COMPREHENSIVE METABOLIC PN,CMP [CHEM] DAILY 06/22/20 06:00 CBC WITH AUTO DIFF [HEME] DAILY COMPREHENSIVE METABOLIC PN,CMP [CHEM] DAILY - Plan Plan:: 1. COVID-19: Remdesivir & Dexamethasone day 2/. Down to 4L. Incentive spirometry q1WA. Procalcitonin & Tacrolimus level pending. Repeat labs tomorrow. 2. BRANDON/Dehydration: oral intake improving, saline lock. Transplant recommended holding his Losartan & Lasix until his kidney function return to baseline(Cr 1.5). Repeat chemistry tomorrow. 3. Regular diet. 4. DVT prophylaxis: TEDs BLE, Lovenox contraindicated due to chronic thrombocytopenia.
[2020-06-18] MEDS: atorvaSTATin 10 MG Tab PO SCH (19:56)
[2020-06-18] MEDS: Aspirin 81 MG Tab.EC PO SCH (19:57)
[2020-06-18] MEDS: Acetaminophen/Diphenhydramine 500-25 MG Tab PO PRN (20:59)
[2020-06-19] MEDS: MAGNESIUM CHLORIDE PO SCH ×2 (08:34→20:07)
[2020-06-19] MEDS: Multivitamin Tab PO SCH (08:34)
[2020-06-19] MEDS: Phosphorus #1 250 MG Tab PO SCH (08:34)
[2020-06-19] MEDS: Dexamethasone 4 MG/ML 5 ML MDV IVPUSH SCH (08:34)
[2020-06-19] MEDS: Cholecalciferol (Vitamin D3) 25 MCG Tab PO SCH (08:34)
[2020-06-19] MEDS: Sulfamethoxazole/Trimethoprim 400-80 MG Tab PO SCH (08:34)
[2020-06-19] MEDS: Tacrolimus 1 MG Cap PO SCH ×2 (08:34→20:07)
[2020-06-19] MEDS: Tacrolimus 0.5 MG Cap PO SCH ×2 (08:34→20:07)
[2020-06-19] MEDS: Sodium Chloride 0.9% 10 ML Syringe FLUSH PRN ×5 (08:38→09:51)
[2020-06-19] MEDS: Carvedilol 12.5 MG Tab PO SCH ×2 (08:43→20:06)
[2020-06-19] MEDS: Carvedilol 3.125 MG Tab PO SCH ×2 (08:43→20:06)
[2020-06-19] MEDS: REMDESIVIR 100 MG in Sodium Chloride 0.9% 100 ML IV SCH (08:44)
[2020-06-19] MEDS: Sodium Chloride 0.9% 1,000 ML IV SCH ×2 (10:03→22:00)
[2020-06-19] MEDS ORDERED: LORazepam 0.5 MG Tab PO PRN (10:15)
--- NOTE | 2020-06-19 11:24 | PCM.PN ---
- General Info Date of Service: 06/19/20 Subjective Update: Marcos was weaned yesterday down to 3 liters but feeling more short of breath. Diarrhea is improving. Drank about 1.5 L of water yesterday. Starting to smell and taste today. Urine is not bloody or tea colored. No swelling of his ankles or abdomen. No chest pain. Dry nose, has some blood-tinged sputum this morning. He does have nasal rinses from home here that he does when showering. Having more anxiety but slept better last night than he has in a while. - Patient Data Vitals - Most Recent: Last Vital Signs Temp 97.6 F 06/19/20 08:00 Pulse 62 06/19/20 08:43 Resp 16 06/19/20 08:00 BP 122/76 06/19/20 08:43 Pulse Ox 93 L 06/19/20 08:00 Weight - Most Recent: 234 lb 2 oz I&O - Last 24 Hours: Intake & Output 06/18/20 06/19/20 06/19/20 22:59 06:59 14:59 Intake Total 375 500 Output Total 480 Balance 375 20 Lab Results Last 24 Hours: Laboratory Results - last 24 hr 06/19/20 06/19/20 Range/Units 06:30 06:30 WBC 4.5 (3.2-10.1) x10-3/uL RBC 4.39 (3.90-5.90) x10(6)uL Hgb 12.1 L (12.9-17.7) g/dL Hct 37.9 L (38.3-50.1) % MCV 86.2 (80.8-98.7) fL MCH 27.5 (27.0-33.3) pg MCHC 31.8 (28.7-35.3) g/dL RDW 17.1 H (12.4-15.0) % Plt Count 118 (117-477) x10(3)uL MPV 8.2 (6.7-11.0) fL Neut % (Auto) 81.9 H (40.3-71.8) % Lymph % (Auto) 12.3 L (15.8-45.3) % Mcintosh % (Auto) 5.8 (5.5-15.2) % Eos % (Auto) 0.0 L (0.1-6.8) % Baso % (Auto) 0.0 L (0.3-3.8) % Neut # (Auto) 3.7 (1.7-6.9) x10-3/uL Lymph # (Auto) 0.6 (0.5-4.5) x10-3/uL Mcintosh # (Auto) 0.3 (0.0-1.2) x10-3/uL Eos # (Auto) 0.0 (0.0-0.6) x10-3/uL Baso # (Auto) 0.0 (0.0-0.3) x10-3/uL Sodium 141 (135-145) mmol/L Potassium 4.8 (3.5-5.3) mmol/L Chloride 109 (100-110) mmol/L Carbon Dioxide 20 L (21-32) mmol/L BUN 42 H D (7-18) mg/dL Creatinine 1.9 H (0.70-1.30) mg/dL Est Cr Clr Drug Dosing 46.87 mL/min Estimated GFR (MDRD) 36 L (>60) BUN/Creatinine Ratio 22.1 H (9-20) Glucose 145 H (80-116) mg/dL Calcium 8.1 L (8.6-10.2) mg/dL Total Bilirubin 0.4 (0.1-1.3) mg/dL AST 33 H D (5-25) IU/L ALT 20 D (12-36) U/L Alkaline Phosphatase 58 (56-112) IU/L Total Protein 5.5 L (6.0-8.0) g/dL Albumin 2.5 L (3.2-4.6) g/dL Globulin 3.0 g/dL Albumin/Globulin Ratio 0.8 Med Orders - Current: Current Medications Acetaminophen (Tylenol) 650 mg PO Q4H PRN PRN Reason: Fever Greater Than 101 Last Admin: 06/16/20 14:50 Dose: 650 mg Documented by: Acetaminophen/Diphenhydramine HCl (Tylenol Pm Extra Strength) 1 tab PO BEDTIME PRN PRN Reason: Insomnia Last Admin: 06/18/20 20:59 Dose: 1 tab Documented by: Aspirin (Halfprin) 81 mg PO DAILY@1999 [facility] Last Admin: 06/18/20 19:57 Dose: 81 mg Documented by: Atorvastatin Calcium (Lipitor) 10 mg PO MOWEFR@1999 [facility] Last Admin: 06/18/20 19:56 Dose: 10 mg Documented by: Carvedilol (Coreg) 3.125 mg PO BID@ [facility] Last Admin: 06/19/20 08:43 Dose: 3.125 mg Documented by: Carvedilol (Coreg) 12.5 mg PO BID@ [facility] Last Admin: 06/19/20 08:43 Dose: 12.5 mg Documented by: Cholecalciferol (Vitamin D3) 50 mcg PO DAILY@08 [facility] Last Admin: 06/19/20 08:34 Dose: 50 mcg Documented by: Dexamethasone (Dexamethasone) 6 mg IVPUSH DAILY [facility] Stop: 06/27/20 09:01 Last Admin: 06/19/20 08:34 Dose: 6 mg Documented by: Sodium Chloride (Normal Saline) 1,000 mls @ 75 mls/hr IV ASDIRECTED [facility] Last Admin: 06/19/20 10:03 Dose: 75 mls/hr Documented by: Remdesivir 100 mg/ Sodium (Chloride) 100 mls @ 100 mls/hr IV Q24H [facility] Stop: 06/21/20 09:59 Last Admin: 06/19/20 08:44 Dose: 100 mls/hr Documented by: Lorazepam (Ativan) 0.25 mg PO Q4H PRN PRN Reason: Anxiety Last Admin: 06/19/20 10:38 Dose: 0.25 mg Documented by: Multivitamins/Minerals/Vitamin C (Tab-A-Jeannette) 1 tab PO DAILY@08 [facility] Last Admin: 06/19/20 08:34 Dose: 1 tab Documented by: Non-Formulary Medication 1 Each ( Magnesium Chloride [ Slow-Mag] 1 Tab) * Ptom* 1 tab PO BID@ [facility] Last Admin: 06/19/20 08:34 Dose: 1 tab Documented by: Ondansetron HCl (Zofran Odt) 4 mg PO Q6H PRN PRN Reason: nausea, able to take PO Prednisone (Prednisone) 10 mg PO DAILY@0800 [facility] Last Admin: 06/17/20 08:17 Dose: 10 mg Documented by: Sodium Chloride (Saline Flush) 10 ml FLUSH ASDIRECTED PRN PRN Reason: Keep Vein Open Last Admin: 06/19/20 08:52 Dose: 10 ml Documented by: Sodium Phosphate (Neutra-Phos) 250 mg PO DAILY@08 [facility] Last Admin: 06/19/20 08:34 Dose: 250 mg Documented by: Tacrolimus (Prograf) 0.5 mg PO BID@ [facility] Last Admin: 06/19/20 08:34 Dose: 0.5 mg Documented by: Tacrolimus (Prograf) 1 mg PO BID@ [facility] Last Admin: 06/19/20 08:34 Dose: 1 mg Documented by: Trimethoprim/Sulfamethoxazole (Septra) 1 tab PO DAILY@08 [facility] Last Admin: 06/19/20 08:34 Dose: 1 tab Documented by: Discontinued Medications Acetaminophen (Tylenol Extra Strength) 500 mg PO ONETIME ONE Stop: 06/16/20 23:09 Last Admin: 06/16/20 23:16 Dose: 500 mg Documented by: Dexamethasone (Decadron) 6 mg IVPUSH DAILY [facility] Stop: 06/25/20 09:01 Last Admin: 06/16/20 15:09 Dose: Not Given Documented by: Furosemide (Lasix) 20 mg PO DAILY@0800 [facility] Last Admin: 06/17/20 08:17 Dose: 20 mg Documented by: Remdesivir 200 mg/ Sodium (Chloride) 250 mls @ 200 mls/hr IV ONETIME ONE Stop: 06/17/20 11:14 Last Admin: 06/17/20 10:38 Dose: 200 mls/hr Documented by: Losartan Potassium (Cozaar) 25 mg PO DAILY@0800 [facility] Last Admin: 06/17/20 08:16 Dose: 25 mg Documented by: - Exam General: Alert, Oriented, Cooperative, No Acute Distress Lungs: Clear to Auscultation, Normal Respiratory Effort, Decreased Breath Sounds (bibasilar), Crackles (RLL). No: Wheezing Cardiovascular: Regular Rate, Regular Rhythm GI/Abdominal Exam: Soft, Non-Tender, No Distention, Abnormal Bowel Sounds (hyperactive x4) Extremities: No Pedal Edema, Normal Capillary Refill Psy/Mental Status: Anxious Sepsis Event Note - Evaluation Sepsis Screening Result: No Definite Risk - Focused Exam Vital Signs: Vital Signs Temp Temp Pulse Pulse Resp BP BP 06/19/20 08:43 62 122/76 01/16/21 08:00 97.6 F 62 16 122/76 06/19/20 06:00 97.1 F 50 L 16 141/79 H 06/19/20 00:00 96.9 F 67 18 138/73 Pulse Ox 06/19/20 08:43 06/19/20 08:00 93 L 06/19/20 06:00 90 L 06/19/20 00:00 93 L - Problem List & Annotations (1) BRANDON (acute kidney injury) SNOMED Code(s): 18305989, 84555742 Code(s): N17.9 - ACUTE KIDNEY FAILURE, UNSPECIFIED Status: Acute Current Visit: Yes Annotation/Comment:: Worsened today 1.9, trial of saline lock yesterday failed, restart NS at 75 ml/hr, Tacrolimus level pending. (2) Viral pneumonia SNOMED Code(s): 41667207 Code(s): J12.9 - VIRAL PNEUMONIA, UNSPECIFIED Status: Acute Current Visit: Yes (3) COVID-19 SNOMED Code(s): 328092936 Code(s): U07.1 - COVID-19 Status: Acute Current Visit: Yes (4) Dehydration SNOMED Code(s): 12086343 Code(s): E86.0 - DEHYDRATION Status: Acute Current Visit: Yes (5) Anemia of renal disease SNOMED Code(s): 825718296 Code(s): D63.1 - ANEMIA IN CHRONIC KIDNEY DISEASE Status: Chronic Pr iority: Medium Current Visit: No (6) Drug-induced immune thrombocytopenia SNOMED Code(s): 22312893 Code(s): D69.59 - OTHER SECONDARY THROMBOCYTOPENIA; T50.905A - ADVERSE EFFECT OF UNSP DRUG/MEDS/BIOL SUBST, INIT Status: Chronic Current Visit: No (7) Renovascular hypertension SNOMED Code(s): 094252458 Code(s): I15.0 - RENOVASCULAR HYPERTENSION Status: Chronic Priority: High Current Visit: No (8) Transplant of kidney SNOMED Code(s): 421540570 Code(s): Z94.0 - KIDNEY TRANSPLANT STATUS Status: Chronic Current Visit: No Annotation/Comment:: Continue transplant antirejection meds. (9) Adenocarcinoma of prostate SNOMED Code(s): 807315034 Code(s): C61 - MALIGNANT NEOPLASM OF PROSTATE Status: Chronic Priority: High Current Visit: No Annotation/Comment:: 07/2013 - Problem List Review Problem List Initiated/Reviewed/Updated: Yes - My Orders Last 24 Hours: My Active Orders 06/18/20 11:26 Convert IV to Peripheral Lock [Convert IV to Saline Lock] [OM.PC] Routine 06/19/20 10:15 LORazepam [Ativan] 0.25 mg PO Q4H PRN 06/20/20 06:00 CBC WITH AUTO DIFF [HEME] DAILY COMPREHENSIVE METABOLIC PN,CMP [CHEM] DAILY 06/21/20 06:00 CBC WITH AUTO DIFF [HEME] DAILY COMPREHENSIVE METABOLIC PN,CMP [CHEM] DAILY 06/22/20 06:00 CBC WITH AUTO DIFF [HEME] DAILY COMPREHENSIVE METABOLIC PN,CMP [CHEM] DAILY - Plan Plan:: 1. COVID-19: Remdesivir & Dexamethasone day 3/5. Down to 4L. Incentive spirometry q1WA. Procalcitonin & Tacrolimus level pending. Repeat labs tomorrow. 2. BRANDON/Dehydration: oral intake improved with return of taste & smell but with diarrhea not staying ahead, Restart NS at 75ml/hr. Transplant recommended holding his Losartan & Lasix until his kidney function return to baseline(Cr 1.5). Blood pressures controlled. Repeat chemistry tomorrow. 3. Regular diet. 4. DVT prophylaxis: TEDs BLE, Lovenox contraindicated due to chronic thrombocytopenia, is improving.
[2020-06-19] MEDS ORDERED: Rocuronium 50 MG/5 ML Vial IV ONE (16:59)
[2020-06-19] MEDS ORDERED: Propofol 200 MG/20 ML SDV IV ONE (16:59)
[2020-06-19] MEDS ORDERED: Succinylcholine 200 MG/10 ML MDV IV ONE (16:59)
[2020-06-19] MEDS ORDERED: Midazolam 1 MG/ML 2 ML SDV IV ONE (16:59)
[2020-06-19] MEDS: LORazepam 0.5 MG Tab PO PRN (17:39)
[2020-06-19] MEDS: Aspirin 81 MG Tab.EC PO SCH (20:07)
[2020-06-19] MEDS: Acetaminophen/Diphenhydramine 500-25 MG Tab PO PRN (20:52)
[2020-06-20] MEDS: Carvedilol 3.125 MG Tab PO SCH (08:17)
[2020-06-20] MEDS: Carvedilol 12.5 MG Tab PO SCH (08:18)
[2020-06-20] MEDS: Phosphorus #1 250 MG Tab PO SCH (08:18)
[2020-06-20] MEDS: Cholecalciferol (Vitamin D3) 25 MCG Tab PO SCH (08:19)
[2020-06-20] MEDS: Multivitamin Tab PO SCH (08:19)
[2020-06-20] MEDS: Sulfamethoxazole/Trimethoprim 400-80 MG Tab PO SCH (08:19)
[2020-06-20] MEDS: MAGNESIUM CHLORIDE PO SCH (08:19)
[2020-06-20] MEDS: Dexamethasone 4 MG/ML 5 ML MDV IVPUSH SCH (08:19)
[2020-06-20] MEDS: Tacrolimus 1 MG Cap PO SCH (08:19)
[2020-06-20] MEDS: Tacrolimus 0.5 MG Cap PO SCH (08:19)
[2020-06-20] MEDS: REMDESIVIR 100 MG in Sodium Chloride 0.9% 100 ML IV SCH (08:20)
[2020-06-20] MEDS: Sodium Chloride 0.9% 10 ML Syringe FLUSH PRN ×4 (08:34→09:37)
[2020-06-20] MEDS: LORazepam 0.5 MG Tab PO PRN (08:46)
[2020-06-20] MEDS ORDERED: LORazepam 1 MG Tab PO PRN (10:34)
[2020-06-20] MEDS ORDERED: LORazepam 0.5 MG Tab PO ONE (10:34)
--- NOTE | 2020-06-20 11:22 | PCM.PN ---
- General Info Date of Service: 06/20/20 Subjective Update: Marcos is feeling more short of breath this morning and denies chest pain but state he started feeling that his chest was constrictive yesterday and today. He states that he has had IV contrast in the past with treatment with fluids before. Spoke with Dr Salter, Transplant Team again today, discussed his course since talked with her on . Tacrolimus level not back yet, Lab will call them today, his goal range is between 4-6. Dr Salter recommended getting CT angiogram to rule out Pulmonary embolism rather than treating him presumptively for it. Recommended 1 ml/kg/hour of IVF, he is 106 kg prior to procedure, during at least 6-12 hours after procedure. Will call her back once CT is done. He is more anxious this morning than yesterday. Had formed stool in yesterday morning, then 2 loose stools. No stools yet today. Not drinking much he states because of the shortness of breath feeling. - Patient Data Vitals - Most Recent: Last Vital Signs Temp 97.7 F 06/20/20 08:00 Pulse 62 06/20/20 08:18 Resp 16 06/20/20 08:00 BP 152/86 H 06/20/20 08:18 Pulse Ox 94 L 06/20/20 08:00 Weight - Most Recent: 234 lb 2 oz I&O - Last 24 Hours: Intake & Output 06/19/20 06/20/20 06/20/20 22:59 06:59 14:59 Intake Total 865 634 Output Total 450 Balance 865 184 Lab Results Last 24 Hours: Laboratory Results - last 24 hr 06/16/20 06/20/20 06/20/20 Range/Units 11:42 06:05 06:05 WBC 6.4 (3.2-10.1) x10-3/uL RBC 4.26 (3.90-5.90) x10(6)uL Hgb 11.7 L (12.9-17.7) g/dL Hct 36.8 L (38.3-50.1) % MCV 86.4 (80.8-98.7) fL MCH 27.4 (27.0-33.3) pg MCHC 31.7 (28.7-35.3) g/dL RDW 17.3 H (12.4-15.0) % Plt Count 131 (117-477) x10(3)uL MPV 8.2 (6.7-11.0) fL Neut % (Auto) 86.1 H (40.3-71.8) % Lymph % (Auto) 8.3 L (15.8-45.3) % Bradley % (Auto) 5.6 (5.5-15.2) % Eos % (Auto) 0.0 L (0.1-6.8) % Baso % (Auto) 0.0 L (0.3-3.8) % Neut # (Auto) 5.5 (1.7-6.9) x10-3/uL Lymph # (Auto) 0.5 (0.5-4.5) x10-3/uL Bradley # (Auto) 0.4 (0.0-1.2) x10-3/uL Eos # (Auto) 0.0 (0.0-0.6) x10-3/uL Baso # (Auto) 0.0 (0.0-0.3) x10-3/uL Sodium 141 (135-145) mmol/L Potassium 4.7 (3.5-5.3) mmol/L Chloride 111 H (100-110) mmol/L Carbon Dioxide 18 L (21-32) mmol/L BUN 44 H (7-18) mg/dL Creatinine 1.9 H (0.70-1.30) mg/dL Est Cr Clr Drug Dosing 46.87 mL/min Estimated GFR (MDRD) 36 L (>60) BUN/Creatinine Ratio 23.2 H (9-20) Glucose 136 H (80-116) mg/dL Calcium 8.0 L (8.6-10.2) mg/dL Total Bilirubin 0.4 (0.1-1.3) mg/dL AST 30 H (5-25) IU/L ALT 21 (12-36) U/L Alkaline Phosphatase 59 (56-112) IU/L Total Protein 5.3 L (6.0-8.0) g/dL Albumin 2.5 L (3.2-4.6) g/dL Globulin 2.8 g/dL Albumin/Globulin Ratio 0.9 Procalcitonin 0.39 H (0.00-0.08) ng/mL Med Orders - Current: Current Medications Acetaminophen (Tylenol) 650 mg PO Q4H PRN PRN Reason: Fever Greater Than 101 Last Admin: 06/16/20 14:50 Dose: 650 mg Documented by: Acetaminophen/Diphenhydramine HCl (Tylenol Pm Extra Strength) 1 tab PO BEDTIME PRN PRN Reason: Insomnia Last Admin: 06/19/20 20:52 Dose: 1 tab Documented by: Aspirin (Halfprin) 81 mg PO DAILY@1999 [facility] Last Admin: 06/19/20 20:07 Dose: 81 mg Documented by: Atorvastatin Calcium (Lipitor) 10 mg PO MOWEFR@1999 [facility] Last Admin: 06/18/20 19:56 Dose: 10 mg Documented by: Carvedilol (Coreg) 3.125 mg PO BID@ [facility] Last Admin: 06/20/20 08:17 Dose: 3.125 mg Documented by: Carvedilol (Coreg) 12.5 mg PO BID@ [facility] Last Admin: 06/20/20 08:18 Dose: 12.5 mg Documented by: Cholecalciferol (Vitamin D3) 50 mcg PO DAILY@0800 [facility] Last Admin: 06/20/20 08:19 Dose: 50 mcg Documented by: Dexamethasone (Dexamethasone) 6 mg IVPUSH DAILY [facility] Stop: 06/27/20 09:01 Last Admin: 06/20/20 08:19 Dose: 6 mg Documented by: Sodium Chloride (Normal Saline) 1,000 mls @ 110 mls/hr IV ASDIRECTED [facility] Last Admin: 06/19/20 22:00 Dose: 75 mls/hr Documented by: Remdesivir 100 mg/ Sodium (Chloride) 100 mls @ 100 mls/hr IV Q24H [facility] Stop: 06/21/20 09:59 Last Admin: 06/20/20 08:20 Dose: 100 mls/hr Documented by: Lorazepam (Ativan) 1 mg PO Q4H PRN PRN Reason: Anxiety Multivitamins/Minerals/Vitamin C (Tab-A-Jeannette) 1 tab PO DAILY@0800 [facility] Last Admin: 06/20/20 08:19 Dose: 1 tab Documented by: Non-Formulary Medication 1 Each ( Magnesium Chloride [ Slow-Mag] 1 Tab) * Ptom* 1 tab PO BID@0800,1999 [facility] Last Admin: 06/20/20 08:19 Dose: 1 tab Documented by: Ondansetron HCl (Zofran Odt) 4 mg PO Q6H PRN PRN Reason: nausea, able to take PO Prednisone (Prednisone) 10 mg PO DAILY@0800 [facility] Last Admin: 06/17/20 08:17 Dose: 10 mg Documented by: Sodium Chloride (Saline Flush) 10 ml FLUSH ASDIRECTED PRN PRN Reason: Keep Vein Open Last Admin: 06/19/20 08:52 Dose: 10 ml Documented by: Sodium Phosphate (Neutra-Phos) 250 mg PO DAILY@0800 [facility] Last Admin: 06/20/20 08:18 Dose: 250 mg Documented by: Tacrolimus (Prograf) 0.5 mg PO BID@ [facility] Last Admin: 06/20/20 08:19 Dose: 0.5 mg Documented by: Tacrolimus (Prograf) 1 mg PO BID@ [facility] Last Admin: 06/20/20 08:19 Dose: 1 mg Documented by: Trimethoprim/Sulfamethoxazole (Septra) 1 tab PO DAILY@0800 [facility] Last Admin: 06/20/20 08:19 Dose: 1 tab Documented by: Discontinued Medications Acetaminophen (Tylenol Extra Strength) 500 mg PO ONETIME ONE Stop: 06/16/20 23:09 Last Admin: 06/16/20 23:16 Dose: 500 mg Documented by: Dexamethasone (Decadron) 6 mg IVPUSH DAILY [facility] Stop: 06/25/20 09:01 Last Admin: 06/16/20 15:09 Dose: Not Given Documented by: Furosemide (Lasix) 20 mg PO DAILY@0800 [facility] Last Admin: 06/17/20 08:17 Dose: 20 mg Documented by: Remdesivir 200 mg/ Sodium (Chloride) 250 mls @ 200 mls/hr IV ONETIME ONE Stop: 06/17/20 11:14 Last Admin: 06/17/20 10:38 Dose: 200 mls/hr Documented by: Lorazepam (Ativan) 0.25 mg PO Q4H PRN PRN Reason: Anxiety Last Admin: 06/19/20 10:38 Dose: 0.25 mg Documented by: Lorazepam (Ativan) 0.5 mg PO Q4H PRN PRN Reason: Anxiety Last Admin: 06/20/20 08:46 Dose: 0.5 mg Documented by: Lorazepam (Ativan) 0.5 mg PO ONETIME ONE Stop: 06/20/20 10:35 Last Admin: 06/20/20 11:09 Dose: 0.5 mg Documented by: Losartan Potassium (Cozaar) 25 mg PO DAILY@0800 [facility] Last Admin: 06/17/20 08:16 Dose: 25 mg Documented by: - Exam Quality Assessment: Supplemental Oxygen (at 6L) General: Alert, Oriented, Cooperative, Other (Anxious) Lungs: Clear to Auscultation, Normal Respiratory Effort. No: Crackles, Wheezing Cardiovascular: Regular Rate, Regular Rhythm GI/Abdominal Exam: Normal Bowel Sounds, Soft, Non-Tender, No Distention Extremities: No Pedal Edema, Normal Capillary Refill Peripheral Pulses: 2+: Radial (L), Radial (R) Skin: Warm, Dry, Intact Psy/Mental Status: Anxious Sepsis Event Note - Evaluation Sepsis Screening Result: No Definite Risk - Focused Exam Vital Signs: Vital Signs Temp Temp Pulse Pulse Resp BP BP 06/20/20 08:18 62 152/86 H 06/20/20 08:17 62 152/86 H 06/20/20 08:00 97.7 F 62 16 152/86 H 06/20/20 05:45 97.6 F 62 20 145/77 H 06/20/20 00:00 97.5 F 54 L 20 144/76 H Pulse Ox 06/20/20 08:18 06/20/20 08:17 06/20/20 08:00 94 L 06/20/20 05:45 90 L 06/20/20 00:00 93 L - Problem List & Annotations (1) BRANDON (acute kidney injury) SNOMED Code(s): 59871975, 70301445 Code(s): N17.9 - ACUTE KIDNEY FAILURE, UNSPECIFIED Status: Acute Current Visit: Yes Annotation/Comment:: Stable at today 1.9, NS at 110 ml/hr, Tacrolimus level pending, goal 4-[address] [facility] Salter advised to increase IVF prior to CT and during and after procedure to rule out PE. Will call her back once CT done. (2) Viral pneumonia SNOMED Code(s): 61782944 Code(s): J12.9 - VIRAL PNEUMONIA, UNSPECIFIED Status: Acute Current Visit: Yes (3) COVID-19 SNOMED Code(s): 049217971 Code(s): U07.1 - COVID-19 Status: Acute Current Visit: Yes (4) Dehydration SNOMED Code(s): 60317691 Code(s): E86.0 - DEHYDRATION Status: Acute Current Visit: Yes (5) Anemia of renal disease SNOMED Code(s): 111093676 Code(s): D63.1 - ANEMIA IN CHRONIC KIDNEY DISEASE Status: Chronic Priority: Medium Current Visit: No (6) Drug-induced immune thrombocytopenia SNOMED Code(s): 76777624 Code(s): D69.59 - OTHER SECONDARY THROMBOCYTOPENIA; T50.905A - ADVERSE EFFECT OF UNSP DRUG/MEDS/BIOL SUBST, INIT Status: Chronic Current Visit: No Annotation/Comment:: Improved to 131, most likely due to Dexamethasone. (7) Renovascular hypertension SNOMED Code(s): 385276463 Code(s): I15.0 - RENOVASCULAR HYPERTENSION Status: Chronic Priority: High Current Visit: No (8) Transplant of kidney SNOMED Code(s): 544181155 Code(s): Z94.0 - KIDNEY TRANSPLANT STATUS Status: Chronic Current Visit: No Annotation/Comment:: Continue transplant antirejection meds. (9) Adenocarcinoma of prostate SNOMED Code(s): 441647005 Code(s): C61 - MALIGNANT NEOPLASM OF PROSTATE Status: Chronic Priority: High Current Visit: No Annotation/Comment:: 07/2013 - Problem List Review Problem List Initiated/Reviewed/Updated: Yes - My Orders Last 24 Hours: My Active Orders 06/20/20 10:25 Ang Chest [CT] Routine 06/20/20 10:34 LORazepam [Ativan] 1 mg PO Q4H PRN 06/21/20 06:00 PT Evaluation and Treatment [CONS] Routine CBC WITH AUTO DIFF [HEME] DAILY COMPREHENSIVE METABOLIC PN,CMP [CHEM] DAILY 06/22/20 06:00 CBC WITH AUTO DIFF [HEME] DAILY COMPREHENSIVE METABOLIC PN,CMP [CHEM] DAILY - Plan Plan:: 1. COVID-19: Remdesivir & Dexamethasone day 4/5. Was down to 3L but up to 6L today, exam improved, need to rule out PE, spoke with [facility] Transplant team, increase IVF to 1mg/kg/hr. Incentive spirometry q1WA. Procalcitonin <2, low risk of sepsis & Tacrolimus level pending. Repeat labs tomorrow. 2. BRANDON/Dehydration: NS at 110ml/hr. Repeat chemistry tomorrow. 3. Regular diet. 4. DVT prophylaxis: TEDs BLE. CTA to rule out PE.
[2020-06-20] MEDS ORDERED: Iopamidol 755 Mg/ML 100 ML Bottle IV ONE (11:40)
[2020-06-20] MEDS: Sodium Chloride 0.9% 1,000 ML IV SCH (11:41)
[2020-06-20] MEDS ORDERED: Heparin Sodium/0.45% NaCl 25,000 UNITS/500 ML BAG IV SCH (13:00)
[2020-06-20] MEDS ORDERED: Heparin Sodium 5,000 Units/ML Vial IVPUSH ONE (13:01)
[2020-06-20] MEDS ORDERED: Midazolam 1 MG/ML 2 ML SDV IVPUSH STA (14:29)
--- NOTE | 2020-06-20 15:41 | PCM.DCSUM1 ---
Discharge Summary - Hospital Course HPI Initial Comments: Marcos started having scratchy throat on 05/30, went in and got tested on 06/02, was positive for COVID-19, received Bamlanivimab infusion on the 06/03. He did not have improvement of his symptoms, started getting more fatigued, short of breath on 06/13, decrease in appetite and drinking. Had pulse oximetry at home, was in the 80s with activity so presented to ER today. WBC was 5.2, Hgb 12.9, Platelets 87. Electrolytes unremarkable except Creatinine 2.0. History of kidney transplant x 3, on Prograf, baseline is 1.5. Chest x-ray shows bilateral patchy pneumonia consistent with COVID/viral pneumonia. Oxygen in ER was 92% on room air. He states his urination has decreased and gotten darker over the past few days. Afebrile, no chest pain, nausea, vomiting, diarrhea, abdominal pain. No rash. Has AV fistula in right forearm from when he was on dialysis prior to transplant due to [place] Syndrome. History of hypertension, normally runs 110s, also has chronic thrombocytopenia, since 2018 per our records. - Discharge Data Discharge Date: 06/20/20 ([facility]) Discharge Disposition: DC/Tfer to Acute Hospital 02 Condition: Stable - Referral to Home Health Primary Care Physician: Humberto Barlow MD - Discharge Diagnosis/Problem(s) (1) Acute respiratory distress syndrome (ARDS) due to COVID-19 virus SNOMED Code(s): 829345576137128460 ICD Code: U07.1 - COVID-19; J80 - ACUTE RESPIRATORY DISTRESS SYNDROME Status: Acute Current Visit: Yes (2) Elevated d-dimer SNOMED Code(s): 758462525 ICD Code: R79.89 - OTHER SPECIFIED ABNORMAL FINDINGS OF BLOOD CHEMISTRY Status: Acute Current Visit: Yes (3) Viral pneumonia SNOMED Code(s): 40772475 ICD Code: J12.9 - VIRAL PNEUMONIA, UNSPECIFIED Status: Acute Current Visit: Yes (4) COVID-19 SNOMED Code(s): 965443004 ICD Code: U07.1 - COVID-19 Status: Acute Current Visit: Yes (5) BRANDON (acute kidney injury) SNOMED Code(s): 22008804, 29337601 ICD Code: N17.9 - ACUTE KIDNEY FAILURE, UNSPECIFIED Status: Acute Current Visit: Yes Problem Details: Stable at today 1.9, saline lock, Tacrolimus level pending, goal 4-6 per [facility]. Will be managed by [facility]. (6) Anemia of renal disease SNOMED Code(s): 525636165 ICD Code: D63.1 - ANEMIA IN CHRONIC KIDNEY DISEASE Status: Chronic Priority: Medium Current Visit: No (7) Drug-induced immune thrombocytopenia SNOMED Code(s): 09724490 ICD Code: D69.59 - OTHER SECONDARY THROMBOCYTOPENIA; T50.905A - ADVERSE EFFECT OF UNSP DRUG/MEDS/BIOL SUBST, INIT Status: Chronic Current Visit: No Problem Details: Improved to 131, most likely due to Dexamethasone. (8) Renovascular hypertension SNOMED Code(s): 379325512 ICD Code: I15.0 - RENOVASCULAR HYPERTENSION Status: Chronic Priority: High Current Visit: No (9) Transplant of kidney SNOMED Code(s): 848895755 ICD Code: Z94.0 - KIDNEY TRANSPLANT STATUS Status: Chronic Current Visit: No Problem Details: Continue transplant antirejection meds. (10) Adenocarcinoma of prostate SNOMED Code(s): 289520139 ICD Code: C61 - MALIGNANT NEOPLASM OF PROSTATE Status: Chronic Priority: High Current Visit: No Problem Details: 07/2013 - Patient Summary/Data Consults: Consultations 06/21/20 06:00 PT Evaluation and Treatment [CONS] Routine Please Evaluate and Treat. PT Reason for Consult: Ambulation This query below is only for informational purposes and is not editable. Admission Diagnosis/Problem: Pneumonia Hospital Course: Marcos was admitted on 06/16, initially was saturating 92% on room air on the floor, he desaturated overnight down to 80%, came up to 95% on 5L. Initial WBC was within normal limits 5.2, Creatinine was 2.0. Spoke with Dr Salter at [facility] morning after admission, advised to hold his Losartan & Lasix, was in agreement with starting Remdesivir & Dexamethasone, which was on 06/17. She also wanted Tacrolimus level, it was collected & sent out on 06/17, still pending at time of typing this note. He was dehydrated on admission, had started NS 75 ml/hr, patient was worried he was getting fluid overload first night, asked for it to be stopped, then asked for it to be restarted in the morning. His urination improved, had 1200 ml out on 06/18. His Creatinine improved to 1.7, WBC did drop to 2.6 on 06/18, his count 06/20 was 6.4. His creatinine came up to 1.9 on 06/19 and same today(06/20). LFTs today were AST 30, ALT 21, Alkaline phosphatase 59. He started getting his taste & smell back on 06/19. His appetite was improving, ate 100% & 80% of his meals 06/19, had weaned him down at 3L, maintaining saturations 92-94% into this morning. He was having more of constrictive feeling this morning, didn't describe it as chest pain, but more short of breath. His lungs were clear, few crackles in left base. He is 22 days out from start of symptoms with COVID, suspected pulmonary embolism. So I called & spoke with Dr Salter and she recommended getting CTA to rule out PE, increase fluids to 1 mg/kg/hr to protect his kidney. After I got off the phone with her, he desaturated down into the 70s, attempted high-flow by nasal cannula but still remained in 70s, changed to non-rebreather mask, came up to 88% then 94%. Discussed with family need to transfer to higher level of care, they wished to go to [facility]. Spoke with [facility], they felt he should go to closer facility. Spoke with [facility], hospitalist did not feel he was appropriate for direct admission. Called back to [facility] and spoke with Dr Sam Jarrett, Critical care/Covid specialist, he agreed that he needed admission, recommended getting D-Dimer which was 21.96(<0.59 is normal), chest x-ray which showed ARDS(acute respiratory distress syndrome), start Heparin Drip. Given 5000 unit bolus then 25.4 ml/hr drip per protocol. He stated he would need to be intubated to come by fixed wing aircraft. Family initially did not want intubation so I called back to [facility] to go to their ICU. Family after discussion decided they would go to [facility] and were in agreement with intubation. Dr Jarrett has accepted the patient, intubated the patient at 1600, please see anesthesia note for details, flight arrived at 1640. Bag masked oxgyen was at 98%, 169/103, Resp 16 at 1635. Flight crew left with patient in stable condition at 1700. - Patient Instructions Diet: Regular Diet as Tolerated Other/Special Instructions: Transfer to [facility] for higher level of care - Discharge Plan Home Medications: Home Meds Acetaminophen/Diphenhydramine [Tylenol Pm Ex-Strength Caplet] 1 ea PO BEDTIME PRN 12/03/15 [History] Multivitamin with Minerals [Multiple Vitamin] 1 tab PO DAILY@0800 09/09/17 [History] Acetaminophen 1,000 mg PO Q6H 06/16/20 [History] Amoxicillin 2,000 mg PO ASDIRECTED PRN 06/16/20 [History] Aspirin [Lo-Dose Aspirin EC] 81 mg PO DAILY@199906/16/20 [History] Cholecalciferol (Vitamin D3) [Vitamin D3] 50 mcg PO DAILY@0806/16/20 [History] Furosemide 20 mg PO DAILY@0806/16/20 [History] Losartan [Cozaar] 25 mg PO DAILY@0806/16/20 [History] Magnesium Chloride [Slow-Mag] 1 tab PO BID@08,199906/16/20 [History] Phosphorus #1 [Virt-Phos 250 Neutral Tablet] 250 mg PO DAILY@0806/16/20 [History] Sulfamethoxazole/Trimethoprim [Sulfamethoxazole-Tmp Ss Tablet] 1 tab PO DAILY@0806/16/20 [History] Tacrolimus [Prograf] 0.5 mg PO BID@0800,199906/16/20 [History] Tacrolimus [Prograf] 1 mg PO BID@0800,199906/16/20 [History] atorvaSTATin [Lipitor] 10 mg PO MOWEFR@199906/16/20 [History] carvediloL [Carvedilol] 3.125 mg PO BID@0800,199906/16/20 [History] carvediloL [Carvedilol] 12.5 mg PO BID@08,199906/16/20 [History] fluorouraciL [Efudex 5% Cream] 1 applic TOP BID PRN 06/16/20 [History] predniSONE 10 mg PO DAILY@0806/16/20 [History] Oxygen Therapy Mode: Mechanical Ventilation Patient Handouts: COVID-19 Frequently Asked Questions, Fall Prevention in Hospitals, Adult, Venous Thromboembolism Prevention Forms: ED Department Discharge Referrals: Humberto Barlow MD [Primary Care Provider] - - Discharge Summary/Plan Comment DC Time >30 min.: No - Patient Data Vitals - Most Recent: Last Vital Signs Temp 97.7 F 06/20/20 12:00 Pulse 64 06/20/20 12:00 Resp 20 06/20/20 12:00 BP 160/89 H 06/20/20 12:00 Pulse Ox 94 L 06/20/20 12:00 Weight - Most Recent: 234 lb 2 oz I&O - Last 24 hours: Intake & Output 06/20/20 06/20/20 06/20/20 06:59 14:59 22:59 Intake Total 634 447 Output Total 450 Balance 184 447 Lab Results - Last 24 hrs: Laboratory Results - last 24 hr 06/20/20 06/20/20 06/20/20 Range/Units 06:05 06:05 13:15 WBC 6.4 (3.2-10.1) x10-3/uL RBC 4.26 (3.90-5.90) x10(6)uL Hgb 11.7 L (12.9-17.7) g/dL Hct 36.8 L (38.3-50.1) % MCV 86.4 (80.8-98.7) fL MCH 27.4 (27.0-33.3) pg MCHC 31.7 (28.7-35.3) g/dL RDW 17.3 H (12.4-15.0) % Plt Count 131 (117-477) x10(3)uL MPV 8.2 (6.7-11.0) fL Neut % (Auto) 86.1 H (40.3-71.8) % Lymph % (Auto) 8.3 L (15.8-45.3) % Randolph % (Auto) 5.6 (5.5-15.2) % Eos % (Auto) 0.0 L (0.1-6.8) % Baso % (Auto) 0.0 L (0.3-3.8) % Neut # (Auto) 5.5 (1.7-6.9) x10-3/uL Lymph # (Auto) 0.5 (0.5-4.5) x10-3/uL Randolph # (Auto) 0.4 (0.0-1.2) x10-3/uL Eos # (Auto) 0.0 (0.0-0.6) x10-3/uL Baso # (Auto) 0.0 (0.0-0.3) x10-3/uL APTT (24.4-33.2) SECONDS D-Dimer, Quantitative 21.96 H (0.0-0.59) mg/LFEU Sodium 141 (135-145) mmol/L Potassium 4.7 (3.5-5.3) mmol/L Chloride 111 H (100-110) mmol/L Carbon Dioxide 18 L (21-32) mmol/L BUN 44 H (7-18) mg/dL Creatinine 1.9 H (0.70-1.30) mg/dL Est Cr Clr Drug Dosing 46.87 mL/min Estimated GFR (MDRD) 36 L (>60) BUN/Creatinine Ratio 23.2 H (9-20) Glucose 136 H (80-116) mg/dL Calcium 8.0 L (8.6-10.2) mg/dL Total Bilirubin 0.4 (0.1-1.3) mg/dL AST 30 H (5-25) IU/L ALT 21 (12-36) U/L Alkaline Phosphatase 59 (56-112) IU/L Total Protein 5.3 L (6.0-8.0) g/dL Albumin 2.5 L (3.2-4.6) g/dL Globulin 2.8 g/dL Albumin/Globulin Ratio 0.9 / Range/Units 13:15 WBC (3.2-10.1) x10-3/uL RBC (3.90-5.90) x10(6)uL Hgb (12.9-17.7) g/dL Hct (38.3-50.1) % MCV (80.8-98.7) fL MCH (27.0-33.3) pg MCHC (28.7-35.3) g/dL RDW (12.4-15.0) % Plt Count (117-477) x10(3)uL MPV (6.7-11.0) fL Neut % (Auto) (40.3-71.8) % Lymph % (Auto) (15.8-45.3) % Randolph % (Auto) (5.5-15.2) % Eos % (Auto) (0.1-6.8) % Baso % (Auto) (0.3-3.8) % Neut # (Auto) (1.7-6.9) x10-3/uL Lymph # (Auto) (0.5-4.5) x10-3/uL Randolph # (Auto) (0.0-1.2) x10-3/uL Eos # (Auto) (0.0-0.6) x10-3/uL Baso # (Auto) (0.0-0.3) x10-3/uL APTT 28.0 (24.4-33.2) SECONDS D-Dimer, Quantitative (0.0-0.59) mg/LFEU Sodium (135-145) mmol/L Potassium (3.5-5.3) mmol/L Chloride (100-110) mmol/L Carbon Dioxide (21-32) mmol/L BUN (7-18) mg/dL Creatinine (0.70-1.30) mg/dL Est Cr Clr Drug Dosing mL/min Estimated GFR (MDRD) (>60) BUN/Creatinine Ratio (9-20) Glucose (80-116) mg/dL Calcium (8.6-10.2) mg/dL Total Bilirubin (0.1-1.3) mg/dL AST (5-25) IU/L ALT (12-36) U/L Alkaline Phosphatase (56-112) IU/L Total Protein (6.0-8.0) g/dL Albumin (3.2-4.6) g/dL Globulin g/dL Albumin/Globulin Ratio Med Orders - Current: Current Medications Acetaminophen (Tylenol) 650 mg PO Q4H PRN PRN Reason: Fever Greater Than 101 Last Admin: 06/16/20 14:50 Dose: 650 mg Documented by: Acetaminophen/Diphenhydramine HCl (Tylenol Pm Extra Strength) 1 tab PO BEDTIME PRN PRN Reason: Insomnia Last Admin: 06/19/20 20:52 Dose: 1 tab Documented by: Aspirin (Halfprin) 81 mg PO DAILY@1999 [facility] Last Admin: 06/19/20 20:07 Dose: 81 mg Documented by: Atorvastatin Calcium (Lipitor) 10 mg PO MOWEFR@1999 [facility] Last Admin: 06/18/20 19:56 Dose: 10 mg Documented by: Carvedilol (Coreg) 3.125 mg PO BID@ [facility] Last Admin: 06/20/20 08:17 Dose: 3.125 mg Documented by: Carvedilol (Coreg) 12.5 mg PO BID@ [facility] Last Admin: 06/20/20 08:18 Dose: 12.5 mg Documented by: Cholecalciferol (Vitamin D3) 50 mcg PO DAILY@799 [facility] Last Admin: 06/20/20 08:19 Dose: 50 mcg Documented by: Dexamethasone (Dexamethasone) 6 mg IVPUSH DAILY [facility] Stop: 06/27/20 09:01 Last Admin: 06/20/20 08:19 Dose: 6 mg Documented by: Sodium Chloride (Normal Saline) 1,000 mls @ 110 mls/hr IV ASDIRECTED [facility] Last Admin: 06/20/20 11:41 Dose: 110 mls/hr Documented by: Remdesivir 100 mg/ Sodium (Chloride) 100 mls @ 100 mls/hr IV Q24H [facility] Stop: 06/21/20 09:59 Last Admin: 06/20/20 08:20 Dose: 100 mls/hr Documented by: Heparin Sodium/Sodium Chloride (Heparin 25,000 Units In 1/2 Ns 500 Ml) 25,000 units in 500 mls @ 25.487 mls/hr IV TITRATE [facility]; Protocol Last Admin: 06/20/20 13:18 Dose: 12 units/kg/hr, 25.487 mls/hr Documented by: Lorazepam (Ativan) 1 mg PO Q4H PRN PRN Reason: Anxiety Multivitamins/Minerals/Vitamin C (Tab-A-Jeannette) 1 tab PO DAILY@799 [facility] Last Admin: 06/20/20 08:19 Dose: 1 tab Documented by: Non-Formulary Medication 1 Each ( Magnesium Chloride [ Slow-Mag] 1 Tab) * Ptom* 1 tab PO BID@ [facility] Last Admin: 06/20/20 08:19 Dose: 1 tab Documented by: Ondansetron HCl (Zofran Odt) 4 mg PO Q6H PRN PRN Reason: nausea, able to take PO Prednisone (Prednisone) 10 mg PO DAILY@0800 [facility] Last Admin: 06/17/20 08:17 Dose: 10 mg Documented by: Sodium Chloride (Saline Flush) 10 ml FLUSH ASDIRECTED PRN PRN Reason: Keep Vein Open Last Admin: 06/19/20 08:52 Dose: 10 ml Documented by: Sodium Phosphate (Neutra-Phos) 250 mg PO DAILY@0800 [facility] Last Admin: 06/20/20 08:18 Dose: 250 mg Documented by: Tacrolimus (Prograf) 0.5 mg PO BID@ [facility] Last Admin: 06/20/20 08:19 Dose: 0.5 mg Documented by: Tacrolimus (Prograf) 1 mg PO BID@ [facility] Last Admin: 06/20/20 08:19 Dose: 1 mg Documented by: Trimethoprim/Sulfamethoxazole (Septra) 1 tab PO DAILY@08 [facility] Last Admin: 06/20/20 08:19 Dose: 1 tab Documented by: Discontinued Medications Acetaminophen (Tylenol Extra Strength) 500 mg PO ONETIME ONE Stop: 06/16/20 23:09 Last Admin: 06/16/20 23:16 Dose: 500 mg Documented by: Dexamethasone (Decadron) 6 mg IVPUSH DAILY [facility] Stop: 06/25/20 09:01 Last Admin: 06/16/20 15:09 Dose: Not Given Documented by: Furosemide (Lasix) 20 mg PO DAILY@0800 [facility] Last Admin: 06/17/20 08:17 Dose: 20 mg Documented by: Heparin Sodium (Porcine) (Heparin Sodium) 5,000 units IVPUSH ONETIME ONE Stop: 06/20/20 13:02 Last Admin: 06/20/20 13:16 Dose: 5,000 units Documented by: Remdesivir 200 mg/ Sodium (Chloride) 250 mls @ 200 mls/hr IV ONETIME ONE Stop: 06/17/20 11:14 Last Admin: 06/17/20 10:38 Dose: 200 mls/hr Documented by: Iopamidol (Isovue-370 (76%)) 100 ml IV ONETIME ONE Stop: 06/20/20 11:41 Last Admin: 06/20/20 12:16 Dose: Not Given Documented by: Lorazepam (Ativan) 0.25 mg PO Q4H PRN PRN Reason: Anxiety Last Admin: 06/19/20 10:38 Dose: 0.25 mg Documented by: Lorazepam (Ativan) 0.5 mg PO Q4H PRN PRN Reason: Anxiety Last Admin: 06/20/20 08:46 Dose: 0.5 mg Documented by: Lorazepam (Ativan) 0.5 mg PO ONETIME ONE Stop: 06/20/20 10:35 Last Admin: 06/20/20 11:09 Dose: 0.5 mg Documented by: Losartan Potassium (Cozaar) 25 mg PO DAILY@0800 [facility] Last Admin: 06/17/20 08:16 Dose: 25 mg Documented by: Midazolam HCl (Versed 1 Mg/Ml) 2 mg IVPUSH ONETIME STA Stop: 06/20/20 14:30 - Exam General: Reports: Obtunded (Intubated) Lungs: Reports: Crackles (throughout) Cardiovascular: Reports: Regular Rate, Regular Rhythm GI/Abdominal Exam: Normal Bowel Sounds Skin: Reports: Ecchymosis (lip, bilateral hands. 18G in left antecubital, 20G in left hand.)
[2020-06-20] MEDS ORDERED: Sodium Chloride 0.9% 1,000 ML IV SCH (16:15)
[2020-06-20 17:20] VITALS: BP 150/72; PULSE 68
== END 2020-06-20 17:00 | DRG 208 ==
LOC: FB.ED 11:01 → FB.MS 13:38
PROVIDERS: ADMIT Family Medicine; ATTEND Family Medicine
PROC: XW033E5 Introduction of Remdesivir Anti-infective into Peripheral Vein, Percutaneous Approach, New Technology Group 5 (ICD-10-PCS; principal; 2020-06-16)
PROC: 5A0945A Assistance with Respiratory Ventilation, 24-96 Consecutive Hours, High Flow/Velocity Cannula (ICD-10-PCS; 2020-06-16)
PROC: 8E0ZXY6 Isolation (ICD-10-PCS; 2020-06-16)
PROC: 5A1935Z Respiratory Ventilation, Less than 24 Consecutive Hours (ICD-10-PCS; 2020-06-20)
PROC: 0BH17EZ Insertion of Endotracheal Airway into Trachea, Via Natural or Artificial Opening (ICD-10-PCS; 2020-06-20)
DX: U07.1 COVID-19 (principal); J12.82 Pneumonia due to coronavirus disease 2019; J80 Acute respiratory distress syndrome; Z94.0 Kidney transplant status; Q87.81 Alport syndrome; I42.9 Cardiomyopathy, unspecified; D84.9 Immunodeficiency, unspecified; N17.9 Acute kidney failure, unspecified; D69.6 Thrombocytopenia, unspecified; R79.89 Other specified abnormal findings of blood chemistry; D63.1 Anemia in chronic kidney disease; H54.7 Unspecified visual loss; E86.0 Dehydration; L98.9 Disorder of the skin and subcutaneous tissue, unspecified; I11.0 Hypertensive heart disease with heart failure; I50.9 Heart failure, unspecified; J84.10 Pulmonary fibrosis, unspecified; L57.0 Actinic keratosis; E21.3 Hyperparathyroidism, unspecified; K21.9 Gastro-esophageal reflux disease without esophagitis; N43.3 Hydrocele, unspecified; D69.59 Other secondary thrombocytopenia; I15.0 Renovascular hypertension; C61 Malignant neoplasm of prostate; Z79.899 Other long term (current) drug therapy; Z88.1 Allergy status to other antibiotic agents; Z88.8 Allergy status to other drugs, medicaments and biological substances; Z91.09 Other allergy status, other than to drugs and biological substances; Z79.82 Long term (current) use of aspirin; Z79.52 Long term (current) use of systemic steroids; Z99.2 Dependence on renal dialysis; Z98.890 Other specified postprocedural states; Z85.46 Personal history of malignant neoplasm of prostate; Z98.52 Vasectomy status
CPT/HCPCS: 31500; 36415; 51702; 51798; 71045; 80048; 80053; 80076; 80197; 81001; 83880; 84145; 84484; 85025; 85379; 85730; 87045; 87046; 87427; 94150; 94760; 99285; 99285-25; A9270-GY; J0330; J1100; J1644; J2250; J2704; J3490; J7030; J7050; J7507; J7512